=== PATIENT | male | born 1945 ===

== ENCOUNTER 2016-05-31 15:18 | Inpatient (IN) | payer MEDICARE ==
[2016-05-31 20:35] VITALS: BMI 30.7
[2016-05-31] MEDS ORDERED: Ergocalciferol 50,000 Intl Units Cap PO SCH (22:00)
--- NOTE | 2016-05-31 23:15 | CP.PCM.HP ---
History of Present Illness - History of Present Illness History of Present Illness: PCP: Dr Gina Bond MD Chief complaint: Left side weakness for Rehabilitation HPI: 70 years old male with hx of DM II, Anemia, Multiple Myeloma transferred from the [facility] ([facility] to the [facility] for Acute Rehabilitation. He was admitted to the [facility] on 05/23/16 after left side weakness and fall. diagnosed with MUltiple Sclerosis Exacerbation. he was treated with IV Steroids which initially improved his weakness. He now refers that with the tapering of the steroids , that the left side weakness is increasing. He was also treated for Acute Cystitis .At present he refers limited movement of the left leg and left upper extremity, no fever,cough, SOB nor abdominal pains. His barrios catheter was left in place because of a urinary retention. PMH: Multiple Sclerosis dx 1998; DM II; external hemorrhoides; anemia; Obstructive Sleep Apnea;Acute Cystitis; hydronephrosis PSH: Herniated disc with lumbar laminectomy and fusion 1989;Gastric bipass 2015 for besity; SH: Never smoked; No alcohol; No illegal drug use; live with ; FH: No Hereditary disease Allergies: NKDA Present on Admission - Present on Admission Any Indicators Present on Admission: Yes History of DVT/PE: No History of Uncontrolled Diabetes: No Urinary Catheter: Yes Decubitus Ulcer Present: No Review of Systems - Constitutional Constitutional: Fatigue. absent: Anorexia, Chills, Fever, Headache, Weakness - EENT Eyes: Requires Corrective Lenses. absent: Blurred Vision, Diplopia, Floaters, Pain Ears: absent: Decreased Hearing, Ear Discharge, Ear Pain, Tinnitus Nose/Mouth/Throat: absent: Epistaxis, Nasal Congestion, Nasal Discharge, Sinus Pain, Sinus Pressure, Sore Throat - Cardiovascular Cardiovascular: absent: Chest Pain, Edema, Leg Ulcers, Lightheadedness, Orthopnea - Respiratory Respiratory: absent: Cough, Wheezing, Stridor - Gastrointestinal Gastrointestinal: absent: Constipation, Diarrhea, Hematemesis, Nausea - Genitourinary Genitourinary: absent: Dysuria Additional comments: urinary retention - Musculoskeletal Musculoskeletal: Muscle Weakness. absent: Back Pain, Myalgias Additional comments: Left lower an dleft upper extremity weaknes - Integumentary Integumentary: absent: Change in Hair, Pruritus, Skin Ulcer, Sores, Striae, Swelling - Neurological Neurological: Focal Weakness. absent: Confusion, Headaches, Loss of Vision, Memory Loss - Psychiatric Psychiatric: absent: Anxiety, Depression, Panic Attacks - Endocrine Endocrine: Polyphagia, Polyuria - Hematologic/Lymphatic Hematologic: absent: Easy Bleeding, Easy Bruising Past Patient History - Past Medical History & Family History Past Medical History?: Yes - Past Social History Smoking Status: Never Smoked Chewing Tobacco Use: No Cigar Use: No Alcohol: None Drugs: Denies Home Situation {Lives}: With Family - CARDIAC Hx Cardiac Disorders: No Hx Pacemaker: No - PULMONARY Hx Respiratory Disorders: No - NEUROLOGICAL Hx Multiple Sclerosis: Yes (1993 - dr. laisha whitfield) - HEENT Hx HEENT Problems: No - RENAL Hx Chronic Kidney Disease: No - ENDOCRINE/METABOLIC Hx Endocrine Disorders: No - HEMATOLOGICAL/ONCOLOGICAL Hx Blood Transfusions: Yes Hx Blood Transfusion Reaction: No - INTEGUMENTARY Hx Dermatological Problems: No - MUSCULOSKELETAL/RHEUMATOLOGICAL Hx Falls: Yes - GASTROINTESTINAL Hx Gastrointestinal Disorders: No - GENITOURINARY/GYNECOLOGICAL Hx Prostate Problems: Yes (enlarged prostate) Hx Urinary Tract Infection: Yes - PSYCHIATRIC Hx Substance Use: No - SURGICAL HISTORY Hx Surgeries: Yes Hx Gastric Bypass Surgery: Yes (2013 gastric sleeve) Hx Musculoskeletal Surgery: Yes (back l4 l5 -1993) - ANESTHESIA Hx Anesthesia: Yes Hx Anesthesia Reactions: No Hx Malignant Hyperthermia: No Meds Allergies/Adverse Reactions: Allergies Allergy/AdvReac Type Severity Reaction Status Date / Time No Known Allergies Allergy Verified 05/31/16 20:00 Physical Exam - Head Exam Head Exam: ATRAUMATIC, NORMOCEPHALIC - Eye Exam Eye Exam: EOMI, Normal appearance, PERRL Pupil Exam: NORMAL ACCOMODATION - ENT Exam ENT Exam: Mucous Membranes Moist, Normal Exam, Normal External Ear Exam, Normal Oropharynx - Neck Exam Neck exam: Positive for: Full Rom, Normal Inspection. Negative for: Lymphadenopathy, Tenderness - Respiratory Exam Respiratory Exam: Clear to Auscultation Bilateral. absent: Rales, Rhonchi, Wheezes - Cardiovascular Exam Cardiovascular Exam: REGULAR RHYTHM, RRR, +S2. absent: Gallop, JVD - GI/Abdominal Exam Additional comments: obese, Soft, nontender, +ve bowel sounds, No guarding nor rebound tenderness - Neurological Exam Neurological exam: Alert, Oriented x3, Reflexes Normal - Psychiatric Exam Psychiatric exam: Flat Affect - Skin Skin Exam: Dry, Intact, Normal Color, Warm Results - Labs Labs: 05/30/16 Hb 13.4 Ht 42.8 WBC 14.2 Blod glucose 247 - Imaging and Cardiology MRI - head Status: Report reviewed by me Additional comment: 05/23/16 there is no significant change in the [id number] which have a pattern suspicious for demyelination process, no territorial infarct, mass effect, subdural collection or hydrocephalus. Bladder US Status: Report reviewed by me Additional comment: 05/25/16 Bladder wall irregularity may indicated Cystitis Lumbar spine MRI Status: Report reviewed by me Additional comment: 05/24/16 No significant change of lumbar spine. post operative and degenertive spindingswith stenosis are noted.thickening of urinary bladder wall incompletely evacuated. Assessment & Plan - Assessment and Plan (Free Text) Assessment: #. MS Exacerbation #. Left upper and lower extremity weakness #. Urinary Retention #. Hydronephrosis #. Acute Cystitis #. DM II #. LY #.Anemia Plan: 70 years old male with hx of DM II, Anemia, Multiple Myeloma transferred from the [facility] ([facility] to the [facility] for Acute Rehabilitation. He was admitted to the [facility] on 05/23/16 after left side weakness and fall. diagnosed with Multiple Sclerosis Exacerbation. He was treated with IV Steroids which initially improved his weakness. He now refers that with the tapering of the steroids , that the left side weakness is increasing. He was also treated for Acute Cystitis .At present he refers limited movement of the left leg and left upper extremity, no fever,cough, SOB nor abdominal pains. His barrios catheter was left in place because of a urinary retention. #. MS Exacerbation - Tapering dose of Prednisone 20mg on 06/01/16 - 06/02/16 the 10mg 06/03/16-06/04/16 - consult Dr Llanos Physiatry - PT/OT #. Left upper and lower extremity weakness - OT/PT #. Urinary Retention with barrios in situ - Continue Flomax and Avodart family could bring in - Voiding trial on 06/06/16 #. Hydronephrosis - Will follow up with Urology out poatient #. Acute Cystitis - Fully Treated with Rocephin at [facility] #. 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 LY - CPAP at nights to sleep #.Anemia - FeSo4/ MV - follow Hb #. External hemorrhoids - Anucort suppository # DVT prophylaxis with Lovenox #. code Status Full - Date & Time Date: 05/31/16 Time: 23:15
[2016-06-01] MEDS: Insulin Lispro (humaLOG) 100 Units/ml Inj SC SCH ×4 (06:48→21:00)
[2016-06-01 07:44] LABS: BASO % 0.2 % (0.0-2.0); EOS # 0.3 K/uL (0.0-0.7); EOS % 2.5 % (0.0-4.0); HEMATOCRIT 38.3 % (35.0-51.0); LYMPH # 4.3 K/uL (1.0-4.3); LYMPH % 39.6 % (20.0-40.0); MEAN CELL VOLUME 78.5 fl (80.0-94.0); MEAN CORPUSCULAR HGB CONC 33.1 g/dL (33.0-37.0); MEAN PLATELET VOLUME 7.7 fl (7.2-11.7); MONO # 0.8 K/uL (0.0-0.8); MONO % 7.3 % (0.0-10.0); NEUT # 5.4 K/uL (1.8-7.0); NEUT % 50.4 % (50.0-75.0); NRBC % 0.2 % (0.0-0.0); PLATELET COUNT 289 K/uL (130-400); RED CELL DISTRIBUTION WIDTH 18.4 % (11.5-14.5); WHITE BLOOD COUNT 10.7 K/uL (4.8-10.8)
[2016-06-01 08:02] LABS: PARTIAL THROMBOPLASTIN TIME 26.3 SECONDS (23.3-32.5)
[2016-06-01 08:04] LABS: BLOOD UREA NITROGEN 19 mg/dl (9-20); CARBON DIOXIDE 29 mmol/L (22-30); CHLORIDE 101 mmol/L (98-107); GFR AFRICAN-AMERICAN > 60; GLUCOSE,RANDOM 100 mg/dL (75-110); POTASSIUM 4.2 MMOL/L (3.6-5.0); SODIUM 141 mmol/l (132-148)
[2016-06-01] MEDS ORDERED: DUTASTERIDE PO SCH (09:00)
[2016-06-01] MEDS ORDERED: MULTIVITAMIN WITH IRON PO SCH (09:00)
[2016-06-01] MEDS: carBAMazepine Chew Tab 100 MG Chew Tab PO SCH ×3 (09:15→17:28)
[2016-06-01] MEDS: Pantoprazole 40 mg EC Tab PO SCH (09:15)
[2016-06-01] MEDS: Enoxaparin 40 mg Syringe SC SCH (09:15)
[2016-06-01] MEDS: Multivitamin With Minerals Tab PO SCH (09:16)
[2016-06-01 10:38] LABS: BASOPHIL 1 % (0-2); EOSINOPHIL 1 % (0-7); MYELOCYTE 2 % (0-0); NEUTROPHIL 44 % (42-75); REACTIVE LYMPHOCYTES 2 % (0-0); TOTAL CELLS COUNTED 100
[2016-06-01 10:41] LABS: LARGE PLATELETS PRESENT
--- NOTE | 2016-06-01 19:00 | CP.PCM.CON ---
History of Present Illness - History of Present Illness History of Present Illness: 70 year male admitted for acute rehab after status post Ms Exacerbation. Patient with weakness and status post fall down the stairs, urinary incontinence. Status post Iv steroids as well. Review of Systems - Constitutional Constitutional: Weakness - Musculoskeletal Musculoskeletal: Back Pain, Muscle Weakness, Myalgias Past Patient History - Past Medical History & Family History Past Medical History?: Yes - Past Social History Smoking Status: Never Smoked Chewing Tobacco Use: No Cigar Use: No Alcohol: None Drugs: Denies Home Situation {Lives}: With Family - CARDIAC Hx Cardiac Disorders: No Hx Pacemaker: No - PULMONARY Hx Respiratory Disorders: No - NEUROLOGICAL Hx Multiple Sclerosis: Yes (1993 - dr. laisha whitfield) - HEENT Hx HEENT Problems: No - RENAL Hx Chronic Kidney Disease: No - ENDOCRINE/METABOLIC Hx Endocrine Disorders: No - HEMATOLOGICAL/ONCOLOGICAL Hx Blood Transfusions: Yes Hx Blood Transfusion Reaction: No - INTEGUMENTARY Hx Dermatological Problems: No - MUSCULOSKELETAL/RHEUMATOLOGICAL Hx Falls: Yes - GASTROINTESTINAL Hx Gastrointestinal Disorders: No - GENITOURINARY/GYNECOLOGICAL Hx Prostate Problems: Yes (enlarged prostate) Hx Urinary Tract Infection: Yes - PSYCHIATRIC Hx Substance Use: No - SURGICAL HISTORY Hx Surgeries: Yes Hx Gastric Bypass Surgery: Yes (2013 gastric sleeve) Hx Musculoskeletal Surgery: Yes (back l4 l5 -1993) - ANESTHESIA Hx Anesthesia: Yes Hx Anesthesia Reactions: No Hx Malignant Hyperthermia: No Meds Allergies/Adverse Reactions: Allergies Allergy/AdvReac Type Severity Reaction Status Date / Time No Known Allergies Allergy Verified 05/31/16 20:00 - Medications Medications: Current Medications Carbamazepine (Tegretol) 100 mg PO TID [facility] Last Admin: 06/01/16 17:28 Dose: 100 mg Docusate Sodium (Colace) 100 mg PO BID [facility] Last Admin: 06/01/16 17:28 Dose: 100 mg Enalapril Maleate (Vasotec) 5 mg PO DAILY [facility] Last Admin: 06/01/16 09:15 Dose: 5 mg Enoxaparin Sodium (Lovenox) 40 mg SC DAILY [facility] PRN Reason: Protocol Last Admin: 06/01/16 09:15 Dose: 40 mg Ergocalciferol (Drisdol 50,000 Intl Units Cap) 1 cap PO QWK [facility] Ferrous Sulfate (Feosol) 325 mg PO TID [facility] Last Admin: 06/01/16 17:28 Dose: 325 mg Finasteride (Proscar) 5 mg PO DAILY [facility] Hydrocortisone (Anusol-Hc) 25 mg ND BID [facility] Last Admin: 06/01/16 17:28 Dose: 25 mg Insulin Human Lispro (Humalog) 0 units SC ACHS [facility] PRN Reason: Protocol Last Admin: 06/01/16 17:27 Dose: 2 unit Lactulose (Enulose) 20 gm PO BID PRN PRN Reason: Constipation Multivitamins/Minerals (Therapeutic-M Tab) 1 tab PO DAILY [facility] Last Admin: 06/01/16 09:16 Dose: 1 tab Pantoprazole Sodium (Protonix Ec Tab) 40 mg PO DAILY [facility] Last Admin: 06/01/16 09:15 Dose: 40 mg Prednisone (Prednisone Tab) 20 mg PO DAILY [facility] Last Admin: 06/01/16 09:14 Dose: 20 mg Prednisone (Prednisone Tab) 10 mg PO DAILY [facility] Stop: 06/04/16 09:01 Tamsulosin HCl (Flomax) 0.4 mg PO DAILY [facility] Last Admin: 06/01/16 09:14 Dose: 0.4 mg Physical Exam - Head Exam Head Exam: ATRAUMATIC, NORMAL INSPECTION, NORMOCEPHALIC - Eye Exam Eye Exam: EOMI, Normal appearance - ENT Exam ENT Exam: Normal Exam - Respiratory Exam Respiratory Exam: NORMAL BREATHING PATTERN - Cardiovascular Exam Cardiovascular Exam: REGULAR RHYTHM - GI/Abdominal Exam GI & Abdominal Exam: Normal Bowel Sounds - Rectal Exam Rectal Exam: NORMAL INSPECTION - Extremities Exam Extremities exam: Positive for: normal inspection Additional comments: weakness generalized and on lower extremity - Neurological Exam Neurological exam: Alert, CN II-XII Intact - Psychiatric Exam Psychiatric exam: Normal Affect - Skin Skin Exam: Normal Color Results - Vital Signs Recent Vital Signs: Last Vital Signs Temp 97.2 F L 06/01/16 16:31 Pulse 79 06/01/16 16:31 Resp 20 06/01/16 16:31 BP 110/61 06/01/16 17:29 Pulse Ox 97 06/01/16 16:31 - Labs Result Diagrams: 06/01/16 07:29 06/01/16 07:29 Labs: Laboratory Results - last 24 hr 05/31/16 06/01/16 06/01/16 22:06 05:21 07:29 WBC 10.7 D RBC 4.88 Hgb 12.7 Hct 38.3 MCV 78.5 L D MCH 26.0 L MCHC 33.1 RDW 18.4 H Plt Count 289 MPV 7.7 Neut % (Auto) 50.4 Lymph % (Auto) 39.6 Kenton % (Auto) 7.3 Eos % (Auto) 2.5 Baso % (Auto) 0.2 Neut # 5.4 Lymph # 4.3 Kenton # 0.8 Eos # 0.3 Baso # 0.0 Neutrophils % (Manual) 44 Band Neutrophils % 1 Lymphocytes % (Manual) 40 Reactive Lymphs % 2 H Monocytes % (Manual) 9 Eosinophils % (Manual) 1 Basophils % (Manual) 1 Myelocytes % 2 H Platelet Estimate Normal Large Platelets Present Poikilocytosis (manual Slight Anisocytosis (manual) Slight Tear Drop Cells Slight Ovalocytes Slight PT 10.8 INR 1.04 APTT 26.3 Sodium 141 Potassium 4.2 Chloride 101 Carbon Dioxide 29 Anion Gap 15 BUN 19 Creatinine 0.7 L Est GFR ( Amer) > 60 Est GFR (Non-Af Amer) > 60 POC Glucose (mg/dL) 108 110 Random Glucose 100 Hemoglobin A1c 6.9 H Calcium 9.0 06/01/16 06/01/16 12:17 16:18 WBC RBC Hgb Hct MCV MCH MCHC RDW Plt Count MPV Neut % (Auto) Lymph % (Auto) Kenton % (Auto) Eos % (Auto) Baso % (Auto) Neut # Lymph # Kenton # Eos # Baso # Neutrophils % (Manual) Band Neutrophils % Lymphocytes % (Manual) Reactive Lymphs % Monocytes % (Manual) Eosinophils % (Manual) Basophils % (Manual) Myelocytes % Platelet Estimate Large Platelets Poikilocytosis (manual Anisocytosis (manual) Tear Drop Cells Ovalocytes PT INR APTT Sodium Potassium Chloride Carbon Dioxide Anion Gap BUN Creatinine Est GFR ( Amer) Est GFR (Non-Af Amer) POC Glucose (mg/dL) 158 H 242 H Random Glucose Hemoglobin A1c Calcium Assessment & Plan (1) Neuralgia Status: Acute (2) UTI (urinary tract infection) Status: Acute (3) Urinary retention Status: Acute (4) Multiple sclerosis exacerbation Assessment and Plan: and history of old Cva, lumbar laminectomy, gastric bypass ,obesity, Dm Plan for physical and occupational therapy for rom, strengthening, transfers and gait training. Overall plan to follow length of stay 2 or 2half weeks\ Plan for Dc home Status: Acute
--- NOTE | 2016-06-01 19:21 | PN ---
DATE: 06/01/2016 The patient is a 70-year-old male. The patient was admitted on 05/31 to acute inpatient rehab. The patient with the diagnosis of exacerbation of multiple sclerosis; also diagnosis of lumbar laminectom y, gastric bypass, hydronephrosis, CVA. Estimated length of stay for this patient is 2-3 weeks. Anticipated discharge plan is to go back to live at home with supportive services. TREATMENT PLAN: Physical therapy, occupational therapy for range of motion, strengthening, transfers , ambulation, gait training, ADL eval, equipment evaluation. The patient for physical, occupational, recreational therapy program. TENTATIVE DISCHARGE FOR THE PATIENT: Discharge home. No acute barriers to discharge noted. Plan for discharge home with supportive services. CONDITION: Fair. This is the overall plan of care for the patient on 6[address], bed 1 at [place]. Jf Garza MD cc: [id number] TT: 06/01/2016 19:20:31 Confirmation # [id number] Dictation # [id number] nadia
[2016-06-02] MEDS: Insulin Lispro (humaLOG) 100 Units/ml Inj SC SCH ×4 (06:30→21:00)
[2016-06-02] MEDS: carBAMazepine Chew Tab 100 MG Chew Tab PO SCH ×3 (08:22→16:22)
[2016-06-02] MEDS: Multivitamin With Minerals Tab PO SCH (08:22)
[2016-06-02] MEDS: Pantoprazole 40 mg EC Tab PO SCH (08:22)
[2016-06-02] MEDS: Enoxaparin 40 mg Syringe SC SCH (08:23)
--- NOTE | 2016-06-02 09:50 | CP.PCM.PN ---
Subjective - Date & Time of Evaluation Date of Evaluation: 06/02/16 Time of Evaluation: 09:49 - Subjective Subjective: feeling improved today, better than yesterday, also feels stronger no other complaints PT going well vitals stable nad. Objective - Vital Signs/Intake and Output Vital Signs (last 24 hours): Temp Pulse Resp BP Pulse Ox 96.6 F L 56 L 20 136/75 95 06/02/16 07:41 06/02/16 07:41 06/02/16 07:41 06/02/16 07:41 06/02/16 07:41 Intake and Output: 06/02/16 06/02/16 06:59 18:59 Intake Total 600 Output Total 1400 Balance -800 - Medications Medications: Current Medications Carbamazepine (Tegretol) 100 mg PO TID [facility] Last Admin: 06/02/16 08:22 Dose: 100 mg Docusate Sodium (Colace) 100 mg PO BID [facility] Last Admin: 06/02/16 08:23 Dose: 100 mg Enalapril Maleate (Vasotec) 5 mg PO DAILY [facility] Last Admin: 06/02/16 08:23 Dose: 5 mg Enoxaparin Sodium (Lovenox) 40 mg SC DAILY [facility] PRN Reason: Protocol Last Admin: 06/02/16 08:23 Dose: 40 mg Ergocalciferol (Drisdol 50,000 Intl Units Cap) 1 cap PO QWK [facility] Ferrous Sulfate (Feosol) 325 mg PO TID [facility] Last Admin: 06/02/16 08:22 Dose: 325 mg Finasteride (Proscar) 5 mg PO DAILY [facility] Last Admin: 06/02/16 08:23 Dose: 5 mg Hydrocortisone (Anusol-Hc) 25 mg MS BID [facility] Last Admin: 06/02/16 08:22 Dose: Not Given Insulin Human Lispro (Humalog) 0 units SC ACHS [facility] PRN Reason: Protocol Last Admin: 06/02/16 06:30 Dose: Not Given Lactulose (Enulose) 20 gm PO BID PRN PRN Reason: Constipation Multivitamins/Minerals (Therapeutic-M Tab) 1 tab PO DAILY [facility] Last Admin: 06/02/16 08:22 Dose: 1 tab Pantoprazole Sodium (Protonix Ec Tab) 40 mg PO DAILY [facility] Last Admin: 06/02/16 08:22 Dose: 40 mg Prednisone (Prednisone Tab) 20 mg PO DAILY [facility] Last Admin: 06/02/16 08:23 Dose: 20 mg Prednisone (Prednisone Tab) 10 mg PO DAILY [facility] Stop: 06/04/16 09:01 Tamsulosin HCl (Flomax) 0.4 mg PO DAILY [facility] Last Admin: 06/02/16 08:23 Dose: 0.4 mg - Labs Labs: 06/01/16 07:29 06/01/16 07:29 PT 10.8 SECONDS (9.6-11.2) 06/01/16 07:29 INR 1.04 (0.92-1.08) 06/01/16 07:29 APTT 26.3 SECONDS (23.3-32.5) 06/01/16 07:29 - Constitutional Appears: Non-toxic, No Acute Distress - Head Exam Head Exam: ATRAUMATIC, NORMOCEPHALIC - Eye Exam Eye Exam: EOMI, Normal appearance, PERRL - ENT Exam ENT Exam: Mucous Membranes Moist, Normal Oropharynx - Neck Exam Neck Exam: Full ROM, Normal Inspection - Cardiovascular Exam Cardiovascular Exam: RRR, +S1, +S2. absent: Gallop, Rubs - GI/Abdominal Exam GI & Abdominal Exam: Soft, Normal Bowel Sounds, Organomegaly. absent: Tenderness, Mass - Extremities Exam Extremities Exam: Normal Capillary Refill. absent: Calf Tenderness - Back Exam Back Exam: NORMAL INSPECTION. absent: CVA tenderness (L), CVA tenderness (R), rash noted - Neurological Exam Neurological Exam: Alert, Awake, Oriented x3 - Psychiatric Exam Psychiatric exam: Normal Affect, Normal Mood - Skin Skin Exam: Dry, Normal Color, Warm Assessment and Plan - Assessment and Plan (Free Text) Plan: 70 years old male with hx of DM II, Anemia, Multiple Myeloma transferred from the [facility] ([facility]) to the [facility] for Acute Rehabilitation. He was admitted to the [facility] on 05/23/16 after left side weakness and fall. diagnosed with Multiple Sclerosis Exacerbation. He was treated with IV Steroids which initially improved his weakness. He now refers that with the tapering of the steroids , that the left side weakness is increasing. He was also treated for Acute Cystitis .At present he refers limited movement of the left leg and left upper extremity, no fever,cough, SOB nor abdominal pains. His barrios catheter was left in place because of a urinary retention. MS Exacerbation MRI BRAIN 05/23/16 there is no significant change in the [id number] which have a pattern suspicious for demyelination process, no territorial infarct, mass effect, subdural collection or hydrocephalus. - Tapering dose of Prednisone 20mg on 06/01/16 - 06/02/16 the 10mg 06/03/16-06/04/16 - consult Dr Llanos Physiatry - PT/OT, continue Left upper and lower extremity weakness 05/24/16 No significant change of lumbar spine. post operative and degenertive spindingswith stenosis are noted.thickening of urinary bladder wall incompletely evacuated. 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
--- NOTE | 2016-06-02 12:01 | CP.PCM.PN ---
Subjective - Date & Time of Evaluation Date of Evaluation: 06/02/16 Time of Evaluation: 11:00 - Subjective Subjective: patient with complains of bilateral leg weakness left side worse than right Objective - Vital Signs/Intake and Output Vital Signs (last 24 hours): Temp Pulse Resp BP Pulse Ox 96.6 F L 56 L 20 136/75 95 06/02/16 07:41 06/02/16 07:41 06/02/16 07:41 06/02/16 07:41 06/02/16 07:41 Intake and Output: 06/02/16 06/02/16 06:59 18:59 Intake Total 600 Output Total 1400 Balance -800 - Medications Medications: Current Medications Carbamazepine (Tegretol) 100 mg PO TID [facility] Last Admin: 06/02/16 08:22 Dose: 100 mg Docusate Sodium (Colace) 100 mg PO BID [facility] Last Admin: 06/02/16 08:23 Dose: 100 mg Enalapril Maleate (Vasotec) 5 mg PO DAILY [facility] Last Admin: 06/02/16 08:23 Dose: 5 mg Enoxaparin Sodium (Lovenox) 40 mg SC DAILY [facility] PRN Reason: Protocol Last Admin: 06/02/16 08:23 Dose: 40 mg Ergocalciferol (Drisdol 50,000 Intl Units Cap) 1 cap PO QWK [facility] Ferrous Sulfate (Feosol) 325 mg PO TID [facility] Last Admin: 06/02/16 08:22 Dose: 325 mg Finasteride (Proscar) 5 mg PO DAILY [facility] Last Admin: 06/02/16 08:23 Dose: 5 mg Hydrocortisone (Anusol-Hc) 25 mg MS BID [facility] Last Admin: 06/02/16 08:22 Dose: Not Given Insulin Human Lispro (Humalog) 0 units SC ACHS [facility] PRN Reason: Protocol Last Admin: 06/02/16 11:53 Dose: Not Given Lactulose (Enulose) 20 gm PO BID PRN PRN Reason: Constipation Multivitamins/Minerals (Therapeutic-M Tab) 1 tab PO DAILY [facility] Last Admin: 06/02/16 08:22 Dose: 1 tab Pantoprazole Sodium (Protonix Ec Tab) 40 mg PO DAILY [facility] Last Admin: 06/02/16 08:22 Dose: 40 mg Prednisone (Prednisone Tab) 10 mg PO DAILY [facility] Stop: 06/04/16 09:01 Tamsulosin HCl (Flomax) 0.4 mg PO DAILY [facility] Last Admin: 06/02/16 08:23 Dose: 0.4 mg - Labs Labs: 06/01/16 07:29 06/01/16 07:29 PT 10.8 SECONDS (9.6-11.2) 06/01/16 07:29 INR 1.04 (0.92-1.08) 06/01/16 07:29 APTT 26.3 SECONDS (23.3-32.5) 06/01/16 07:29 - Head Exam Head Exam: ATRAUMATIC, NORMAL INSPECTION, NORMOCEPHALIC - Eye Exam Eye Exam: EOMI, Normal appearance, PERRL Pupil Exam: NORMAL ACCOMODATION - ENT Exam ENT Exam: Mucous Membranes Moist, Normal Exam - Respiratory Exam Respiratory Exam: NORMAL BREATHING PATTERN - Cardiovascular Exam Cardiovascular Exam: REGULAR RHYTHM - GI/Abdominal Exam GI & Abdominal Exam: Normal Bowel Sounds - Rectal Exam Rectal Exam: NORMAL INSPECTION - Exam External exam: NORMAL EXTERNAL EXAM - Extremities Exam Extremities Exam: Normal Capillary Refill - Back Exam Back Exam: NORMAL INSPECTION - Neurological Exam Neurological Exam: Alert, Awake Neuro motor strength exam: Left Upper Extremity: 3, Right Upper Extremity: 4, Left Lower Extremity: 2/1, Right Lower Extremity: 2/1 - Psychiatric Exam Psychiatric exam: Normal Affect, Normal Mood - Skin Skin Exam: Dry, Normal Color Assessment and Plan (1) Neuralgia Status: Acute (2) UTI (urinary tract infection) Status: Acute (3) Urinary retention Status: Acute (4) Multiple sclerosis exacerbation Assessment & Plan: plan for physical, occupational and rec therapy may go outside with therpists Trial of electrical stimulation to improve muscle strength Status: Acute
[2016-06-03] MEDS: Insulin Lispro (humaLOG) 100 Units/ml Inj SC SCH ×4 (07:00→22:27)
[2016-06-03] MEDS: Enoxaparin 40 mg Syringe SC SCH (09:13)
[2016-06-03] MEDS: Pantoprazole 40 mg EC Tab PO SCH (09:14)
[2016-06-03] MEDS: carBAMazepine Chew Tab 100 MG Chew Tab PO SCH ×3 (09:15→16:53)
[2016-06-03] MEDS: Multivitamin With Minerals Tab PO SCH (09:15)
[2016-06-04] MEDS: Insulin Lispro (humaLOG) 100 Units/ml Inj SC SCH ×4 (06:36→21:16)
[2016-06-04] MEDS: Enoxaparin 40 mg Syringe SC SCH (08:52)
[2016-06-04] MEDS: carBAMazepine Chew Tab 100 MG Chew Tab PO SCH ×3 (08:53→16:57)
[2016-06-04] MEDS: Multivitamin With Minerals Tab PO SCH (08:53)
[2016-06-04] MEDS: Pantoprazole 40 mg EC Tab PO SCH (08:53)
[2016-06-04 09:16] LABS: HEMATOCRIT 39.4 % (35.0-51.0); MEAN CELL VOLUME 79.3 fl (80.0-94.0); MEAN CORPUSCULAR HEMOGLOBIN 25.6 pg (27.0-31.0); MEAN CORPUSCULAR HGB CONC 32.3 g/dL (33.0-37.0); RED CELL DISTRIBUTION WIDTH 18.7 % (11.5-14.5); WHITE BLOOD COUNT 8.7 K/uL (4.8-10.8)
--- NOTE | 2016-06-04 13:12 | PN ---
DATE: 06/04/2016 The patient is doing well. No acute complaints at present, generalized weakness. PHYSICAL EXAMINATION: VITAL SIGNS: Stable. NECK: Supple. CHEST: Symmetrical. HEART: Sounds S1, S2. ABDOMEN: Benign. EXTREMITIES: No clubbing, cyanosis, or edema. IMPRESSION: Multiple sclerosis exacerbation, neuralgia, gait difficulty, deconditioning. PLAN: For the patient is physical and occupational therapy for range of motion, strengthening, trans fers, ambulation, and gait training. Continue to monitor the strength. Trial of functional electric al stimulation. Continue with acute rehabilitation program. Jf Garza MD cc: [id number] TT: 06/04/2016 13:12:01 Confirmation # [id number] Dictation # [id number] mn
[2016-06-05] MEDS: Insulin Lispro (humaLOG) 100 Units/ml Inj SC SCH ×3 (06:45→21:32)
[2016-06-05] MEDS: Enoxaparin 40 mg Syringe SC SCH (09:01)
[2016-06-05] MEDS: Pantoprazole 40 mg EC Tab PO SCH (09:02)
[2016-06-05] MEDS: carBAMazepine Chew Tab 100 MG Chew Tab PO SCH ×3 (09:03→16:55)
[2016-06-05] MEDS: Multivitamin With Minerals Tab PO SCH (09:03)
--- NOTE | 2016-06-05 10:24 | CP.PCM.PN ---
Subjective - Date & Time of Evaluation Date of Evaluation: 06/05/16 Time of Evaluation: 10:24 - Subjective Subjective: patient seen and examined at bedside. currently feels well, strength is improving. he has no complaints at this time and states pt is going well vitals are stable no acute distress. Objective - Vital Signs/Intake and Output Vital Signs (last 24 hours): Temp Pulse Resp BP Pulse Ox 97.7 F 57 L 18 122/71 96 06/05/16 07:34 06/05/16 07:34 06/05/16 07:34 06/05/16 07:34 06/05/16 07:34 Intake and Output: 06/05/16 06/05/16 06:59 18:59 Intake Total 400 Output Total 1000 Balance -600 - Medications Medications: Current Medications Carbamazepine (Tegretol) 100 mg PO TID [facility] Last Admin: 06/05/16 09:03 Dose: 100 mg Docusate Sodium (Colace) 100 mg PO BID [facility] Last Admin: 06/05/16 09:00 Dose: 100 mg Enalapril Maleate (Vasotec) 5 mg PO DAILY [facility] Last Admin: 06/05/16 09:03 Dose: Not Given Enoxaparin Sodium (Lovenox) 40 mg SC DAILY [facility] PRN Reason: Protocol Last Admin: 06/05/16 09:01 Dose: 40 mg Ergocalciferol (Drisdol 50,000 Intl Units Cap) 1 cap PO QWK [facility] Ferrous Sulfate (Feosol) 325 mg PO TID [facility] Last Admin: 06/05/16 09:00 Dose: 325 mg Finasteride (Proscar) 5 mg PO DAILY [facility] Last Admin: 06/05/16 09:02 Dose: 5 mg Hydrocortisone (Anusol-Hc) 25 mg DE BID [facility] Last Admin: 06/05/16 09:00 Dose: 25 mg Insulin Human Lispro (Humalog) 0 units SC ACHS [facility] PRN Reason: Protocol Last Admin: 06/05/16 06:45 Dose: Not Given Lactulose (Enulose) 20 gm PO BID PRN PRN Reason: Constipation Multivitamins/Minerals (Therapeutic-M Tab) 1 tab PO DAILY [facility] Last Admin: 06/05/16 09:03 Dose: 1 tab Pantoprazole Sodium (Protonix Ec Tab) 40 mg PO DAILY [facility] Last Admin: 06/05/16 09:02 Dose: 40 mg Tamsulosin HCl (Flomax) 0.4 mg PO DAILY [facility] Last Admin: 06/05/16 09:00 Dose: 0.4 mg - Labs Labs: 06/04/16 08:30 06/01/16 07:29 PT 10.8 SECONDS (9.6-11.2) 06/01/16 07:29 INR 1.04 (0.92-1.08) 06/01/16 07:29 APTT 26.3 SECONDS (23.3-32.5) 06/01/16 07:29 - Constitutional Appears: Non-toxic, No Acute Distress - Head Exam Head Exam: ATRAUMATIC, NORMOCEPHALIC - Eye Exam Eye Exam: EOMI, Normal appearance, PERRL Pupil Exam: NORMAL ACCOMODATION - ENT Exam ENT Exam: Mucous Membranes Moist, Normal Exam - Neck Exam Neck Exam: Full ROM, Normal Inspection - Respiratory Exam Respiratory Exam: Clear to Ausculation Bilateral - Cardiovascular Exam Cardiovascular Exam: RRR, +S1, +S2. absent: Gallop, Rubs - GI/Abdominal Exam GI & Abdominal Exam: Soft, Normal Bowel Sounds. absent: Tenderness, Mass, Organomegaly - Extremities Exam Extremities Exam: Normal Capillary Refill. absent: Calf Tenderness - Back Exam Back Exam: absent: CVA tenderness (L), CVA tenderness (R) - Neurological Exam Neurological Exam: Alert, Awake, Oriented x3 - Psychiatric Exam Psychiatric exam: Normal Affect, Normal Mood - Skin Skin Exam: Dry, Warm Assessment and Plan - Assessment and Plan (Free Text) Plan: 70 years old male with hx of DM II, Anemia, Multiple Myeloma transferred from the [facility] to the [facility] for [facility]. He was admitted to the [facility] on 05/23/16 after left side weakness and fall. diagnosed with Multiple Sclerosis Exacerbation. He was treated with IV Steroids which initially improved his weakness. He now refers that with the tapering of the steroids , that the left side weakness is increasing. He was also treated for Acute Cystitis .At present he refers limited movement of the left leg and left upper extremity, no fever,cough, SOB nor abdominal pains. His barrios catheter was left in place because of a urinary retention. MS Exacerbation MRI BRAIN 05/23/16 there is no significant change in the [id number] which have a pattern suspicious for demyelination process, no territorial infarct, mass effect, subdural collection or hydrocephalus. - Tapering dose of Prednisone 20mg on 06/01/16 - 06/02/16 the 10mg 06/03/16-06/04/16 - consult Dr Llanos Physiatry - PT/OT, continue doing well Left upper and lower extremity weakness 05/24/16 No significant change of lumbar spine. post operative and degenertive spindingswith stenosis are noted.thickening of urinary bladder wall incompletely evacuated. - OT/PT Urinary Retention with barrios in situ - Continue Flomax and Avodart family could bring in - Voiding trial on 06/06/16 TOMORROW Hydronephrosis - Will follow up with Urology out poatient Acute Cystitis 05/25/16 Bladder wall irregularity may indicated Cystitis - Fully Treated with Rocephin at [facility] DM II secondary to steroids - Diabetic diet - Sliding scale insulin according to accucheck - HbA1c LY - CPAP at nights to sleep Anemia - FeSo4/ MV - follow Hb External hemorrhoids - Anucort suppository DVT prophylaxis with Lovenox code Status Full
[2016-06-06] MEDS: Insulin Lispro (humaLOG) 100 Units/ml Inj SC SCH ×2 (06:21→21:00)
[2016-06-06] MEDS: carBAMazepine Chew Tab 100 MG Chew Tab PO SCH ×3 (09:20→16:52)
[2016-06-06] MEDS: Pantoprazole 40 mg EC Tab PO SCH (09:20)
[2016-06-06] MEDS: Enoxaparin 40 mg Syringe SC SCH (09:20)
[2016-06-06] MEDS: Multivitamin With Minerals Tab PO SCH (09:20)
--- NOTE | 2016-06-06 15:24 | CP.PCM.PN ---
Subjective - Date & Time of Evaluation Date of Evaluation: 06/06/16 Time of Evaluation: 13:00 - Subjective Subjective: no neck or back pain, patient is doing well Objective - Vital Signs/Intake and Output Vital Signs (last 24 hours): Temp Pulse Resp BP Pulse Ox 98.0 F 60 19 144/78 97 06/06/16 08:36 06/06/16 08:36 06/06/16 08:36 06/06/16 08:36 06/06/16 08:36 Intake and Output: 06/06/16 06/06/16 06:59 18:59 Intake Total 600 Output Total 950 Balance -350 - Medications Medications: Current Medications Carbamazepine (Tegretol) 100 mg PO TID [facility] Last Admin: 06/06/16 12:20 Dose: 100 mg Docusate Sodium (Colace) 100 mg PO BID [facility] Last Admin: 06/06/16 09:19 Dose: 100 mg Enalapril Maleate (Vasotec) 5 mg PO DAILY [facility] Last Admin: 06/06/16 09:20 Dose: 5 mg Enoxaparin Sodium (Lovenox) 40 mg SC DAILY [facility] PRN Reason: Protocol Last Admin: 06/06/16 09:20 Dose: 40 mg Ergocalciferol (Drisdol 50,000 Intl Units Cap) 1 cap PO QWK [facility] Ferrous Sulfate (Feosol) 325 mg PO TID [facility] Last Admin: 06/06/16 12:20 Dose: 325 mg Finasteride (Proscar) 5 mg PO DAILY [facility] Last Admin: 06/06/16 09:20 Dose: 5 mg Hydrocortisone (Anusol-Hc) 25 mg RI Q12 [facility] Last Admin: 06/06/16 09:19 Dose: 25 mg Insulin Human Lispro (Humalog) 0 units SC 0630,2130 [facility] PRN Reason: Protocol Last Admin: 06/06/16 06:21 Dose: Not Given Lactulose (Enulose) 20 gm PO BID PRN PRN Reason: Constipation Multivitamins/Minerals (Therapeutic-M Tab) 1 tab PO DAILY [facility] Last Admin: 06/06/16 09:20 Dose: 1 tab Pantoprazole Sodium (Protonix Ec Tab) 40 mg PO DAILY [facility] Last Admin: 06/06/16 09:20 Dose: 40 mg Tamsulosin HCl (Flomax) 0.4 mg PO DAILY [facility] Last Admin: 06/06/16 09:19 Dose: 0.4 mg - Labs Labs: 06/04/16 08:30 06/01/16 07:29 PT 10.8 SECONDS (9.6-11.2) 06/01/16 07:29 INR 1.04 (0.92-1.08) 06/01/16 07:29 APTT 26.3 SECONDS (23.3-32.5) 06/01/16 07:29 - Head Exam Head Exam: ATRAUMATIC, NORMAL INSPECTION, NORMOCEPHALIC - Eye Exam Eye Exam: EOMI, Normal appearance, PERRL Pupil Exam: NORMAL ACCOMODATION - ENT Exam ENT Exam: Mucous Membranes Moist, Normal Exam - Neck Exam Neck Exam: Normal Inspection - Respiratory Exam Respiratory Exam: NORMAL BREATHING PATTERN - Cardiovascular Exam Cardiovascular Exam: REGULAR RHYTHM - GI/Abdominal Exam GI & Abdominal Exam: Normal Bowel Sounds - Rectal Exam Rectal Exam: NORMAL INSPECTION - Exam External exam: NORMAL EXTERNAL EXAM - Extremities Exam Extremities Exam: Normal Capillary Refill, Normal Inspection - Back Exam Back Exam: NORMAL INSPECTION - Neurological Exam Neurological Exam: Alert, Awake Neuro motor strength exam: Left Upper Extremity: 3, Right Upper Extremity: 3, Left Lower Extremity: 3, Right Lower Extremity: 3 - Psychiatric Exam Psychiatric exam: Normal Affect, Normal Mood - Skin Skin Exam: Dry, Intact Assessment and Plan (1) Neuralgia Assessment & Plan: patient for physical, occupational, recreational therapy monitor skin and vitals Status: Acute (2) UTI (urinary tract infection) Status: Acute (3) Urinary retention Status: Acute (4) Multiple sclerosis exacerbation Status: Acute
[2016-06-07] MEDS: Insulin Lispro (humaLOG) 100 Units/ml Inj SC SCH ×2 (06:36→22:08)
[2016-06-07 07:27] LABS: HEMATOCRIT 37.1 % (35.0-51.0); MEAN CELL VOLUME 80.4 fl (80.0-94.0); MEAN CORPUSCULAR HGB CONC 32.3 g/dL (33.0-37.0); RED CELL DISTRIBUTION WIDTH 19.1 % (11.5-14.5); WHITE BLOOD COUNT 7.9 K/uL (4.8-10.8)
[2016-06-07] MEDS: carBAMazepine Chew Tab 100 MG Chew Tab PO SCH ×3 (08:19→17:49)
[2016-06-07] MEDS: Multivitamin With Minerals Tab PO SCH (08:19)
[2016-06-07] MEDS: Pantoprazole 40 mg EC Tab PO SCH (08:19)
[2016-06-07] MEDS: Enoxaparin 40 mg Syringe SC SCH (08:20)
--- NOTE | 2016-06-07 12:09 | PSY.TMCNF ---
Nursing - Vital Signs Vital Signs (Last 8 hours): Vital Signs 06/07/16 06/07/16 08:22 09:05 Temperature 97.6 F Pulse Rate 58 L 58 L Respiratory 19 Rate Blood Pressure 122/72 122/72 O2 Sat by Pulse 96 Oximetry Pain: 0 - Medications/Other Issues Comment: Pt at low nutritional risk. Follow-up due on 06/10/2016 - Bladder Management Bladder Pattern: Normal Voiding Method: Toilet, Urinal - Bowel Management Bowel Pattern: Normal - Goals/Time Frame Comments: Pt was brought into recreation room and agreeable to participate in session. Pt was able to identify minimal leisure interests such as watching television. Pt did not express any other interests. Pt presents with poor insight of MS diagnosis and stated that he keeps researching why he presents with deficits; however, unable to carryover his education of his diagnosis. Pt is not active within the MS community leisure resources. Pt would benefit from recreation therapy sessions to improve L side weakness, leisure awareness level , and community leisure resources. Physical Therapy - Bed Mobility Bed Mobility: Verbal Cues, Contact Guard, Minimal Assistance, Moderate Assistance, Maximum Assistance Comment: rolling CG/min. supine to/from sit mod/max - Transfers Sit to Stand: Verbal Cues, Moderate Assistance, Maximum Assistance - Ambulation Level of Assistance: Maximum Assistance Distance (ft.): 5 Orthoses: L DF wrap Comment: -parallel bars, step to pattern, WC follow. -LLE dorsiflexion wrap in place. -patient utilizes postures evidence of history of gait with posterior propping (on loft strand crutches). -able to take small step with L foot today but requires assistance to control inversion/eversion and landing; max A to prevent L knee buckling; mod A to prevent R knee buckling. -mod to max A for trunk control/upright stance. -requires step by step VCs to attempt to have patient improve pattern of gait. -pt remains at high fall risk due to LE weakness (L>R) and LUE weakness with poor postural control - Stair Negotiation Stairs: Level of Assistance: Not Tested - Standing Balance Static Stand: Maximal Assistance Dynamic Stand: Maximal Assistance - Pain Pain (assessed during therapy session): 0 - Insight/Carryover Insight/Carryover: Fair - Patient/Family Education Comment: -patient inquired to this check writer salesperson "why is it that my nerves on the left leg aren't working"; PT educated patient that is is mosty likely due to an exacerbation of his MS; patient remains qith quizzical look on his face and PT educated patient regarding MS and the progressive nature; patient appears to have difficulty processing and retaining education regarding diagnosis. - educated on POC, therapy schedule, therapy goals, safety, mobility, transfers, postural control, purpose of therapies - Assessment/Plan Assessment: Pt participates in 1:1 recreation therapy sessions. Pt demonstrates increase carryover of task rules and problem solving after orientation to tasks. Pt requires min verbal cues for initiation to attend to task. Pt continues to be present flat affect throughout sessions. Pt has received education and support. Pt would continue to benefit from participating in recreation therapy sessions. - Goals Timeframe: 7 days Goals: -bump 4 steps with mod A. -manual WC x 150 feet with distant supervision. -ambulate 10 feet in // bars with mod A. -mod A with transfers. -CS for rolling. -min A for supine to/from sit - Provider License Number: [id number] Occupational Therapy - Arousal/Attention/Orientation Patient Orientation: Person, Place, Time, Appropriate to Age, Appropriate to Situation - ADL/IADL Self Feeding: Supervision, Verbal Cues, Set-up Help Grooming: Verbal Cues, Set-up Help, Contact Guard Bathing-Upper Extremity: Maximum Assistance Bathing-Lower Extremity: Maximum Assistance, Dependent Dressing-Upper Extremity: Maximum Assistance Dressing-Lower Extremity: Dependent - Sitting Balance Static Sitting: Supervision Dynamic Sitting: Contact Guard Assist, Minimal Assistance - Transfers Wheelchair to Bed Transfers: Maximum Assistance Toilet Transfers: Maximum Assistance Comment: to trial bathing transfers in future sessions. Pt noted with severe LE strength limitaitons and + buckling LLE in standing. - Upper Extremity Status Right Upper Extremity Comment: AROM t/o RUE WFL. Left Upper Extremity Comment: Pt's L shldr at rest is noted with increased laxivity and at least 1 finger sublux however Pt is able to self-approximate when initiating shoulder movement. Pt is noted with slight limited AROM t/.o . PROM WFL - Pain Pain (assessed during therapy session): 0 - Insight/Carryover Insight/Carryover: Fair - Patient/Family Education Comment: -patient inquired to this check writer salesperson "why is it that my nerves on the left leg aren't working"; PT educated patient that is is mosty likely due to an exacerbation of his MS; patient remains qith quizzical look on his face and PT educated patient regarding MS and the progressive nature; patient appears to have difficulty processing and retaining education regarding diagnosis. - educated on POC, therapy schedule, therapy goals, safety, mobility, transfers, postural control, purpose of therapies - Assessment/Plan Assessment: Pt participates in 1:1 recreation therapy sessions. Pt demonstrates increase carryover of task rules and problem solving after orientation to tasks. Pt requires min verbal cues for initiation to attend to task. Pt continues to be present flat affect throughout sessions. Pt has received education and support. Pt would continue to benefit from participating in recreation therapy sessions. - Goals Timeframe: 7 days Goals: -bump 4 steps with mod A. -manual WC x 150 feet with distant supervision. -ambulate 10 feet in // bars with mod A. -mod A with transfers. -CS for rolling. -min A for supine to/from sit - Provider Therapist: Adrianna VELASCO Speech Therapy - Consult Information Patient on Program: Yes Medical Diagnosis: MS exacerbation Treatment Diagnosis: mild cognitive deficits - Assessment Problem Solving Impairment: Mild Comment: impaired problem solving/reasoning for high level tasks Memory Impairment: Mild - Plan Assessment: Pt participates in 1:1 recreation therapy sessions. Pt demonstrates increase carryover of task rules and problem solving after orientation to tasks. Pt requires min verbal cues for initiation to attend to task. Pt continues to be present flat affect throughout sessions. Pt has received education and support. Pt would continue to benefit from participating in recreation therapy sessions. - Provider Therapist: Martha Wagner License Number: [id number] Recreational Therapy - Participation Participation: Participates in Individual and/or Group Sessions - Attendance Attendance: 3-5 times per week - Activities Leisure Activities: Cards and Games - Socialization Level of Socialization: Initiates/interacts freely with care givers and peer - Diversional Time Diversional Time: television - Assessment Assessment/Plan: Pt participates in 1:1 recreation therapy sessions. Pt demonstrates increase carryover of task rules and problem solving after orientation to tasks. Pt requires min verbal cues for initiation to attend to task. Pt continues to be present flat affect throughout sessions. Pt has received education and support. Pt would continue to benefit from participating in recreation therapy sessions. Problems Currently Limiting Participation: decrease leisure awareness level, decrease community leisure awareness level, anxiety, depression, L side weakness Goals and Time Frame: Pt will be encouraged to participate in 1:1 and group recreation therapy sessions 3-5x week to improve leisure awareness level, community leisure awareness level, improve arousal level, and L side weakness. - Provider Therapist: Ibeth Guzman, [employer] #[id number] Nutrition - Current Diet Current Diet/ Supplement/ Feedings: Moderate consistent CHO - Appetite Percent Meal Consumed: 75-100% - Assessment/Goals/Time Frame Assessment/Goals/Time Frame: Pt at low nutritional risk. Follow-up due on 06/10 - Provider Provider: Merced Willett RD Case Management - Discharge Plan Discharge Plan: Home with significant other/family Rehabilitation Plan - Treatment Plan Treatment Plan: Physical Therapy, Occupational Therapy, Speech, Dietary, Patient /Family Education - Discharge Plan Estimated Date of Discharge: 06/16/16 Discharge to: Subacute (Dr Christianson is his neurologist)
--- NOTE | 2016-06-07 12:21 | CP.PCM.PN ---
Subjective - Date & Time of Evaluation Date of Evaluation: 06/07/16 Time of Evaluation: 12:00 - Subjective Subjective: Hospitalist Progress Note (Patient was seen and examined at 12 PM 06/07/16 621-1) 70 year old male who was addmitted to Acute Rehab at [facility] on 05/31/16 from [facility] [place] admitted on 05/23/16 with complaints of left sided weakness s/p fall. He was diagnosed and treated (with IV Steroids) for MS Exacerbation as well as treated for Acute Cystitis (with Rocephin). Upon his admission to [facility] he was noted to have limited movement in the left leg and left arm. MRI Brain 05/23/16: NO significant change to T2 hyperintensities which have a pattern suspicious for demyelination. Bladder U/S 05/25/16: possible cystitis Lumbar MRI 05/24/16: NO significant change, post operative and degenerative findings with stenosis, thickening of urinary bladder ROS: Last bowel movement was last night Able to void urine on his own after Hobbs D/C'd 06/06/16 Can't extend Left Lower Leg since one week from presentation from [facility] but is able to flex his hip Weakness in the Left Arm and Left Leg is slowly improving NO other complaint upon FULL ROS Exam: HEENT: NCA, EOMI, PERRLA, NO cervical lymphadenopathy, NO thyromegaly, NO pharyngeal erythema/exudate, Oral mucosa and nasal turbinates are moist Cardiology: NS1 and NS2, NO M/R/G Respiratory: CTA B/L, NO R/R/W GI: BS x 4, Soft, NT, Central Obesity (can't adequately palpate liver and spleen ), NO guarding/rebound tenderness Extremities: NO edema, Pulses are strong and equal, Capillary Refill is 2 seconds Neurology: CN II throug XII are grossly intact, 5/5 strength with flexion and extension in the bilateral UE and Right LE, Left UE 4/5 strength with flexion and extension, Left LE 3/5 stregth with flexion/extension of hip and 1/5 strength with flexion/extension of the left lower leg Assessment and Plan: 1). MS Exacerbation Finished Prednisone Taper on 06/04/16 PT/OT [employer]ist Dr. Llanos Carbamazepine 100 mg PO TID F/U with Pain Management Dr. Calderon as outpatient F/U with Neurologist Dr. Chatterjee as outpatient whom the patient states he see once a month 2). Urinary Retention/Hydronephrosis/Acute Cystitis Hobbs was discontinued 06/06/16 and since then patient has been voiding on his own without any difficulty Treated with Rocephin at [facility] for the Cystitis F/U with Urologist Dr. Velasquez as outpatient Flomax 0.4 mg PO 1x/day Proscar 5 mg PO 1x/day 3). Hx DM2 RISS at 6:30 AM and 9:30 PM F/U HgBA1C Currently Controlled 4). LY CPAP at night 5). Anemia of Chronic Disease FeSO4 325 mg O TID HgB/Hct are currently stable 6). Hx HTN Enalapril 5 mg PO 1x/day Currently B/P is controlled 7). Prophylactic Measures Colace 100 mg PO 3x/day Enulose 20 gm PO 2x/day PRN Constipation Anusol HC 25 mg MT Q12H Hemerrhoids Lovenox 40 mg SQ 1x/day Protonix 40 mg PO 1x/day MVI PO 1x/day Ergocalciferol 50,000 Units PO once a week Objective - Vital Signs/Intake and Output Vital Signs (last 24 hours): Temp Pulse Resp BP Pulse Ox 97.6 F 58 L 19 122/72 96 06/07/16 09:05 06/07/16 09:05 06/07/16 09:05 06/07/16 09:05 06/07/16 09:05 - Medications Medications: Current Medications Carbamazepine (Tegretol) 100 mg PO TID [facility] Last Admin: 06/07/16 08:19 Dose: 100 mg Docusate Sodium (Colace) 100 mg PO BID [facility] Last Admin: 06/07/16 08:19 Dose: 100 mg Enalapril Maleate (Vasotec) 5 mg PO DAILY [facility] Last Admin: 06/07/16 08:21 Dose: 5 mg Enoxaparin Sodium (Lovenox) 40 mg SC DAILY [facility] PRN Reason: Protocol Last Admin: 06/07/16 08:20 Dose: 40 mg Ergocalciferol (Drisdol 50,000 Intl Units Cap) 1 cap PO QWK [facility] Ferrous Sulfate (Feosol) 325 mg PO TID [facility] Last Admin: 06/07/16 08:19 Dose: 325 mg Finasteride (Proscar) 5 mg PO DAILY [facility] Last Admin: 06/07/16 08:18 Dose: 5 mg Hydrocortisone (Anusol-Hc) 25 mg MT Q12 [facility] Last Admin: 06/07/16 08:18 Dose: 25 mg Insulin Human Lispro (Humalog) 0 units SC 0630,2130 [facility] PRN Reason: Protocol Last Admin: 06/07/16 06:36 Dose: Not Given Lactulose (Enulose) 20 gm PO BID PRN PRN Reason: Constipation Multivitamins/Minerals (Therapeutic-M Tab) 1 tab PO DAILY [facility] Last Admin: 06/07/16 08:19 Dose: 1 tab Pantoprazole Sodium (Protonix Ec Tab) 40 mg PO DAILY [facility] Last Admin: 06/07/16 08:19 Dose: 40 mg Tamsulosin HCl (Flomax) 0.4 mg PO DAILY [facility] Last Admin: 06/07/16 08:18 Dose: 0.4 mg - Labs Labs: 06/07/16 07:05 06/01/16 07:29 PT 10.8 SECONDS (9.6-11.2) 06/01/16 07:29 INR 1.04 (0.92-1.08) 06/01/16 07:29 APTT 26.3 SECONDS (23.3-32.5) 06/01/16 07:29
--- NOTE | 2016-06-07 16:21 | CP.PCM.PN ---
Subjective - Date & Time of Evaluation Date of Evaluation: 06/07/16 Time of Evaluation: 16:19 - Subjective Subjective: Patient seen in room denies sob/cp or joint pain aware that not making good progress, but not realistic as to the implications of this. discussed at length. He is max A for most activities Dr Dawkins to return and continue patient care Objective - Vital Signs/Intake and Output Vital Signs (last 24 hours): Temp Pulse Resp BP Pulse Ox 97.6 F 58 L 19 122/72 96 06/07/16 09:05 06/07/16 09:05 06/07/16 09:05 06/07/16 09:05 06/07/16 09:05 - Medications Medications: Current Medications Carbamazepine (Tegretol) 100 mg PO TID [facility] Last Admin: 06/07/16 12:53 Dose: 100 mg Docusate Sodium (Colace) 100 mg PO BID [facility] Last Admin: 06/07/16 08:19 Dose: 100 mg Enalapril Maleate (Vasotec) 5 mg PO DAILY [facility] Last Admin: 06/07/16 08:21 Dose: 5 mg Enoxaparin Sodium (Lovenox) 40 mg SC DAILY [facility] PRN Reason: Protocol Last Admin: 06/07/16 08:20 Dose: 40 mg Ergocalciferol (Drisdol 50,000 Intl Units Cap) 1 cap PO QWK [facility] Ferrous Sulfate (Feosol) 325 mg PO TID [facility] Last Admin: 06/07/16 12:53 Dose: 325 mg Finasteride (Proscar) 5 mg PO DAILY [facility] Last Admin: 06/07/16 08:18 Dose: 5 mg Hydrocortisone (Anusol-Hc) 25 mg [place] Q12 [facility] Last Admin: 06/07/16 08:18 Dose: 25 mg Insulin Human Lispro (Humalog) 0 units SC 0630,2130 [facility] PRN Reason: Protocol Last Admin: 06/07/16 06:36 Dose: Not Given Lactulose (Enulose) 20 gm PO BID PRN PRN Reason: Constipation Multivitamins/Minerals (Therapeutic-M Tab) 1 tab PO DAILY [facility] Last Admin: 06/07/16 08:19 Dose: 1 tab Pantoprazole Sodium (Protonix Ec Tab) 40 mg PO DAILY [facility] Last Admin: 06/07/16 08:19 Dose: 40 mg Tamsulosin HCl (Flomax) 0.4 mg PO DAILY [facility] Last Admin: 06/07/16 08:18 Dose: 0.4 mg - Labs Labs: 06/07/16 07:05 06/01/16 07:29 PT 10.8 SECONDS (9.6-11.2) 06/01/16 07:29 INR 1.04 (0.92-1.08) 06/01/16 07:29 APTT 26.3 SECONDS (23.3-32.5) 06/01/16 07:29
[2016-06-08] MEDS: Insulin Lispro (humaLOG) 100 Units/ml Inj SC SCH ×2 (06:56→21:00)
[2016-06-08 08:25] LABS: BLOOD UREA NITROGEN 15 mg/dl (9-20); CALCIUM 8.8 mg/dL (8.4-10.2); CARBON DIOXIDE 29 mmol/L (22-30); CHLORIDE 102 mmol/L (98-107); GFR AFRICAN-AMERICAN > 60; GLUCOSE,RANDOM 99 mg/dL (75-110); POTASSIUM 4.4 MMOL/L (3.6-5.0); SODIUM 142 mmol/l (132-148)
[2016-06-08] MEDS: Enoxaparin 40 mg Syringe SC SCH (08:54)
[2016-06-08] MEDS: carBAMazepine Chew Tab 100 MG Chew Tab PO SCH ×3 (08:54→16:54)
[2016-06-08] MEDS: Pantoprazole 40 mg EC Tab PO SCH (08:54)
[2016-06-08] MEDS: Multivitamin With Minerals Tab PO SCH (08:54)
--- NOTE | 2016-06-08 19:17 | CP.PCM.PN ---
Subjective - Date & Time of Evaluation Date of Evaluation: 06/08/16 Time of Evaluation: 13:00 - Subjective Subjective: no acute complaints of any pain Objective - Vital Signs/Intake and Output Vital Signs (last 24 hours): Temp Pulse Resp BP Pulse Ox 97.3 F L 68 18 142/78 99 06/08/16 15:59 06/08/16 15:59 06/08/16 15:59 06/08/16 15:59 06/08/16 15:59 - Medications Medications: Current Medications Carbamazepine (Tegretol) 100 mg PO TID [facility] Last Admin: 06/08/16 16:54 Dose: 100 mg Docusate Sodium (Colace) 100 mg PO BID [facility] Last Admin: 06/08/16 16:54 Dose: 100 mg Enalapril Maleate (Vasotec) 5 mg PO DAILY [facility] Last Admin: 06/08/16 08:54 Dose: 5 mg Enoxaparin Sodium (Lovenox) 40 mg SC DAILY [facility] PRN Reason: Protocol Ergocalciferol (Drisdol 50,000 Intl Units Cap) 1 cap PO QWK [facility] Ferrous Sulfate (Feosol) 325 mg PO TID [facility] Last Admin: 06/08/16 16:54 Dose: 325 mg Finasteride (Proscar) 5 mg PO DAILY [facility] Last Admin: 06/08/16 08:54 Dose: 5 mg Hydrocortisone (Anusol-Hc) 25 mg [place] Q12 [facility] Last Admin: 06/08/16 08:53 Dose: Not Given Insulin Human Lispro (Humalog) 0 units SC 0630,2130 [facility] PRN Reason: Protocol Last Admin: 06/08/16 06:56 Dose: Not Given Lactulose (Enulose) 20 gm PO BID PRN PRN Reason: Constipation Multivitamins/Minerals (Therapeutic-M Tab) 1 tab PO DAILY [facility] Last Admin: 06/08/16 08:54 Dose: 1 tab Pantoprazole Sodium (Protonix Ec Tab) 40 mg PO DAILY [facility] Last Admin: 06/08/16 08:54 Dose: 40 mg Tamsulosin HCl (Flomax) 0.4 mg PO DAILY [facility] Last Admin: 06/08/16 08:53 Dose: 0.4 mg - Labs Labs: 06/07/16 07:05 06/08/16 07:00 PT 10.8 SECONDS (9.6-11.2) 06/01/16 07:29 INR 1.04 (0.92-1.08) 06/01/16 07:29 APTT 26.3 SECONDS (23.3-32.5) 06/01/16 07:29 - Head Exam Head Exam: ATRAUMATIC, NORMAL INSPECTION, NORMOCEPHALIC - Eye Exam Eye Exam: Normal appearance Pupil Exam: NORMAL ACCOMODATION - ENT Exam ENT Exam: Mucous Membranes Moist - Neck Exam Neck Exam: Normal Inspection - Respiratory Exam Respiratory Exam: NORMAL BREATHING PATTERN - Cardiovascular Exam Cardiovascular Exam: REGULAR RHYTHM - GI/Abdominal Exam GI & Abdominal Exam: Normal Bowel Sounds - Rectal Exam Rectal Exam: NORMAL INSPECTION - Exam External exam: NORMAL EXTERNAL EXAM - Extremities Exam Extremities Exam: Normal Capillary Refill, Normal Inspection - Back Exam Back Exam: NORMAL INSPECTION - Neurological Exam Neurological Exam: Alert, Awake, CN II-XII Intact Neuro motor strength exam: Left Upper Extremity: 4, Right Upper Extremity: 3, Left Lower Extremity: 4, Right Lower Extremity: 3 - Psychiatric Exam Psychiatric exam: Normal Affect, Normal Mood - Skin Skin Exam: Normal Color Assessment and Plan (1) Neuralgia Status: Acute (2) UTI (urinary tract infection) Status: Acute (3) Urinary retention Status: Acute (4) Multiple sclerosis exacerbation Assessment & Plan: physical and occupatioAL THERAPY REC THERAPY Status: Acute
[2016-06-09] MEDS: Insulin Lispro (humaLOG) 100 Units/ml Inj SC SCH ×2 (06:36→21:37)
[2016-06-09] MEDS: Multivitamin With Minerals Tab PO SCH (09:00)
[2016-06-09] MEDS: carBAMazepine Chew Tab 100 MG Chew Tab PO SCH ×3 (09:00→16:43)
[2016-06-09] MEDS: Pantoprazole 40 mg EC Tab PO SCH (09:00)
[2016-06-09] MEDS: Enoxaparin 40 mg Syringe SC SCH (09:00)
--- NOTE | 2016-06-09 12:08 | CP.PCM.PN ---
Subjective - Date & Time of Evaluation Date of Evaluation: 06/09/16 Time of Evaluation: 11:00 - Subjective Subjective: no acute complaints of pain , feels he is getting better Objective - Vital Signs/Intake and Output Vital Signs (last 24 hours): Temp Pulse Resp BP Pulse Ox 97.6 F 53 L 22 151/76 H 96 06/09/16 08:09 06/09/16 08:09 06/09/16 08:09 06/09/16 08:09 06/09/16 08:09 - Medications Medications: Current Medications Carbamazepine (Tegretol) 100 mg PO TID [facility] Last Admin: 06/09/16 09:00 Dose: 100 mg Docusate Sodium (Colace) 100 mg PO BID [facility] Last Admin: 06/09/16 09:00 Dose: 100 mg Enalapril Maleate (Vasotec) 5 mg PO DAILY [facility] Last Admin: 06/09/16 09:00 Dose: 5 mg Enoxaparin Sodium (Lovenox) 40 mg SC DAILY [facility] PRN Reason: Protocol Last Admin: 06/09/16 09:00 Dose: 40 mg Ergocalciferol (Drisdol 50,000 Intl Units Cap) 1 cap PO QWK [facility] Ferrous Sulfate (Feosol) 325 mg PO TID [facility] Last Admin: 06/09/16 08:59 Dose: 325 mg Finasteride (Proscar) 5 mg PO DAILY [facility] Last Admin: 06/09/16 09:00 Dose: 5 mg Hydrocortisone (Anusol-Hc) 25 mg [place] Q12 [facility] Last Admin: 06/09/16 08:59 Dose: 25 mg Insulin Human Lispro (Humalog) 0 units SC 0630,2130 [facility] PRN Reason: Protocol Last Admin: 06/09/16 06:36 Dose: Not Given Lactulose (Enulose) 20 gm PO BID PRN PRN Reason: Constipation Multivitamins/Minerals (Therapeutic-M Tab) 1 tab PO DAILY [facility] Last Admin: 06/09/16 09:00 Dose: 1 tab Pantoprazole Sodium (Protonix Ec Tab) 40 mg PO DAILY [facility] Last Admin: 06/09/16 09:00 Dose: 40 mg Tamsulosin HCl (Flomax) 0.4 mg PO DAILY [facility] Last Admin: 06/09/16 09:00 Dose: 0.4 mg - Labs Labs: 06/07/16 07:05 06/08/16 07:00 PT 10.8 SECONDS (9.6-11.2) 06/01/16 07:29 INR 1.04 (0.92-1.08) 06/01/16 07:29 APTT 26.3 SECONDS (23.3-32.5) 06/01/16 07:29 - Head Exam Head Exam: ATRAUMATIC, NORMAL INSPECTION, NORMOCEPHALIC - Eye Exam Eye Exam: EOMI, Normal appearance, PERRL Pupil Exam: NORMAL ACCOMODATION - ENT Exam ENT Exam: Mucous Membranes Moist, Normal Exam - Neck Exam Neck Exam: Normal Inspection - Respiratory Exam Respiratory Exam: NORMAL BREATHING PATTERN - Cardiovascular Exam Cardiovascular Exam: REGULAR RHYTHM - GI/Abdominal Exam GI & Abdominal Exam: Normal Bowel Sounds - Rectal Exam Rectal Exam: NORMAL INSPECTION - Exam External exam: NORMAL EXTERNAL EXAM - Extremities Exam Extremities Exam: Normal Capillary Refill, Normal Inspection - Back Exam Back Exam: NORMAL INSPECTION - Neurological Exam Neurological Exam: Alert, Awake Neuro motor strength exam: Left Upper Extremity: 3, Right Upper Extremity: 4, Left Lower Extremity: 3, Right Lower Extremity: 4 - Psychiatric Exam Psychiatric exam: Normal Affect, Normal Mood - Skin Skin Exam: Dry, Intact, Normal Color Assessment and Plan (1) Neuralgia Status: Acute (2) UTI (urinary tract infection) Status: Acute (3) Urinary retention Status: Acute (4) Multiple sclerosis exacerbation Assessment & Plan: plan for physical occupational and rec therapy mobility, transfers and gait monitor skin and vitals Status: Acute
--- NOTE | 2016-06-09 16:42 | CP.PCM.PN ---
Subjective - Date & Time of Evaluation Date of Evaluation: 06/09/16 Time of Evaluation: 13:30 - Subjective Subjective: Pt seen and examined. No complaint. Objective - Vital Signs/Intake and Output Vital Signs (last 24 hours): Temp Pulse Resp BP Pulse Ox 98.4 F 66 20 111/69 98 06/09/16 15:57 06/09/16 15:57 06/09/16 15:57 06/09/16 15:57 06/09/16 15:57 - Medications Medications: Current Medications Carbamazepine (Tegretol) 100 mg PO TID [facility] Last Admin: 06/09/16 12:24 Dose: 100 mg Docusate Sodium (Colace) 100 mg PO BID [facility] Last Admin: 06/09/16 09:00 Dose: 100 mg Enalapril Maleate (Vasotec) 5 mg PO DAILY [facility] Last Admin: 06/09/16 09:00 Dose: 5 mg Enoxaparin Sodium (Lovenox) 40 mg SC DAILY [facility] PRN Reason: Protocol Last Admin: 06/09/16 09:00 Dose: 40 mg Ergocalciferol (Drisdol 50,000 Intl Units Cap) 1 cap PO QWK [facility] Ferrous Sulfate (Feosol) 325 mg PO TID [facility] Last Admin: 06/09/16 12:24 Dose: 325 mg Finasteride (Proscar) 5 mg PO DAILY [facility] Last Admin: 06/09/16 09:00 Dose: 5 mg Hydrocortisone (Anusol-Hc) 25 mg [place] Q12 [facility] Last Admin: 06/09/16 08:59 Dose: 25 mg Insulin Human Lispro (Humalog) 0 units SC 0630,2130 [facility] PRN Reason: Protocol Last Admin: 06/09/16 06:36 Dose: Not Given Lactulose (Enulose) 20 gm PO BID PRN PRN Reason: Constipation Multivitamins/Minerals (Therapeutic-M Tab) 1 tab PO DAILY [facility] Last Admin: 06/09/16 09:00 Dose: 1 tab Pantoprazole Sodium (Protonix Ec Tab) 40 mg PO DAILY [facility] Last Admin: 06/09/16 09:00 Dose: 40 mg Tamsulosin HCl (Flomax) 0.4 mg PO DAILY [facility] Last Admin: 06/09/16 09:00 Dose: 0.4 mg - Labs Labs: 06/07/16 07:05 06/08/16 07:00 PT 10.8 SECONDS (9.6-11.2) 06/01/16 07:29 INR 1.04 (0.92-1.08) 06/01/16 07:29 APTT 26.3 SECONDS (23.3-32.5) 06/01/16 07:29 - Constitutional Appears: No Acute Distress - Head Exam Head Exam: absent: ATRAUMATIC - Eye Exam Eye Exam: absent: Scleral icterus - ENT Exam ENT Exam: Mucous Membranes Moist - Neck Exam Neck Exam: absent: Meningismus - Respiratory Exam Respiratory Exam: absent: Rhonchi, Wheezes, Respiratory Distress - Cardiovascular Exam Cardiovascular Exam: REGULAR RHYTHM, +S1, +S2 - GI/Abdominal Exam GI & Abdominal Exam: Soft. absent: Tenderness - Rectal Exam Rectal Exam: Deferred - Neurological Exam Neurological Exam: Alert, Oriented x3 - Psychiatric Exam Psychiatric exam: Suicidal Ideation - Skin Skin Exam: Dry, Intact Assessment and Plan (1) Multiple sclerosis exacerbation Status: Acute (2) Urinary retention Status: Acute (3) UTI (urinary tract infection) Status: Acute (4) HTN (hypertension) Status: Acute (5) DM2 (diabetes mellitus, type 2) Status: Acute (6) LY (obstructive sleep apnea) Status: Acute - Assessment and Plan (Free Text) Assessment: 70 yo male with history of DM II, HTN, Anemia and MS admitted at [facility] on because of a fall and left sided weakness. He was diagnosed with MS exacerbation and managed with steroids. He was transferred to Acute Rehab for therapy due to his left sided weakness. Pt also developed urinary retention and UTI while at [facility]. 1. MS Exacerbation continue PT/OT 2. Urinary Retention off barrios catheter Continue Flomax and Avodart 3. UTI resolved 4. HTN BP stable continue Enalapril 5. DM II BS controlled with diet 6. LY CPAP at nights to sleep
[2016-06-10] MEDS: Insulin Lispro (humaLOG) 100 Units/ml Inj SC SCH ×2 (06:43→21:17)
[2016-06-10 07:33] LABS: HEMATOCRIT 38.4 % (35.0-51.0); MEAN CELL VOLUME 81.3 fl (80.0-94.0); MEAN CORPUSCULAR HEMOGLOBIN 25.5 pg (27.0-31.0); MEAN CORPUSCULAR HGB CONC 31.3 g/dL (33.0-37.0); WHITE BLOOD COUNT 6.7 K/uL (4.8-10.8)
[2016-06-10] MEDS: Enoxaparin 40 mg Syringe SC SCH (08:46)
[2016-06-10] MEDS: carBAMazepine Chew Tab 100 MG Chew Tab PO SCH ×3 (08:47→16:49)
[2016-06-10] MEDS: Pantoprazole 40 mg EC Tab PO SCH (08:47)
[2016-06-10] MEDS: Multivitamin With Minerals Tab PO SCH (08:47)
[2016-06-11] MEDS: Insulin Lispro (humaLOG) 100 Units/ml Inj SC SCH ×2 (05:58→21:00)
[2016-06-11] MEDS: Enoxaparin 40 mg Syringe SC SCH (08:24)
[2016-06-11] MEDS: carBAMazepine Chew Tab 100 MG Chew Tab PO SCH ×3 (08:25→17:04)
[2016-06-11] MEDS: Pantoprazole 40 mg EC Tab PO SCH (08:25)
[2016-06-11] MEDS: Multivitamin With Minerals Tab PO SCH (08:26)
[2016-06-12] MEDS: Insulin Lispro (humaLOG) 100 Units/ml Inj SC SCH ×2 (06:00→21:10)
[2016-06-12] MEDS: Enoxaparin 40 mg Syringe SC SCH (09:11)
[2016-06-12] MEDS: carBAMazepine Chew Tab 100 MG Chew Tab PO SCH ×3 (09:11→16:57)
[2016-06-12] MEDS: Multivitamin With Minerals Tab PO SCH (09:11)
[2016-06-12] MEDS: Pantoprazole 40 mg EC Tab PO SCH (09:12)
--- NOTE | 2016-06-12 16:52 | CP.PCM.PN ---
Subjective - Date & Time of Evaluation Date of Evaluation: 06/12/16 Time of Evaluation: 16:50 - Subjective Subjective: Hospitalist Progress Note (Patient was seen and examined 4:50 PM 06/12/16 621-1) 70 year old male who was addmitted to Acute Rehab at [facility] on 05/31/16 from [facility] where he was admitted on 05/23/16 with complaints of left sided weakness s/p fall. He was diagnosed and treated (with IV Steroids) for MS Exacerbation as well as treated for Acute Cystitis (with Rocephin). Upon his admission to [facility] he was noted to have limited movement in the left leg and left arm. MRI Brain 05/23/16: NO significant change to T2 hyperintensities which have a pattern suspicious for demyelination. Bladder U/S 05/25/16: possible cystitis Lumbar MRI 05/24/16: NO significant change, post operative and degenerative findings with stenosis, thickening of urinary bladder ROS: Last bowel movement was this morning Able to void urine on his own after Hobbs D/C'd 06/06/16 Weakness in the Left Arm and Left Leg is slowly improving. He states he is feeling somewhat stronger on the left side of his body NO other complaint upon FULL ROS Exam: HEENT: NCA, EOMI, PERRLA, NO cervical lymphadenopathy, NO thyromegaly, NO pharyngeal erythema/exudate, Oral mucosa and nasal turbinates are moist Cardiology: NS1 and NS2, NO M/R/G Respiratory: CTA B/L, NO R/R/W GI: BS x 4, Soft, NT, Central Obesity (can't adequately palpate liver and spleen ), NO guarding/rebound tenderness Extremities: NO edema, Pulses are strong and equal, Capillary Refill is 2 seconds Neurology: CN II throug XII are grossly intact, 5/5 strength with flexion and extension in the bilateral UE and Right LE, Left UE 4/5 strength with flexion and extension, Left LE 3/5 stregth with flexion/extension of hip and 1/5 strength with flexion/extension of the left lower leg Assessment and Plan: 1). MS Exacerbation Finished Prednisone Taper on 06/04/16 PT/OT Stepdown Nurse Dr. Llanos Carbamazepine 100 mg PO TID F/U with Pain Management Dr. Calderon as outpatient F/U with Neurologist Dr. Chatterjee as outpatient whom the patient states he see once a month 2). Urinary Retention/Hydronephrosis/Acute Cystitis Hobbs was discontinued 06/06/16 and since then patient has been voiding on his own without any difficulty Treated with Rocephin at [facility] for the Cystitis F/U with Urologist Dr. Velasquez as outpatient Flomax 0.4 mg PO 1x/day Proscar 5 mg PO 1x/day 3). Hx DM2 RISS at 6:30 AM and 9:30 PM F/U HgBA1C Currently Controlled 4). LY CPAP at night Bandage at the bridge of the nose when wearing CPAP mask as mask caused an abrasion there 5). Anemia of Chronic Disease FeSO4 325 mg O TID HgB/Hct are currently stable 6). Hx HTN Enalapril 5 mg PO 1x/day Currently B/P is controlled 7). Prophylactic Measures Colace 100 mg PO 3x/day Enulose 20 gm PO 2x/day PRN Constipation Anusol HC 25 mg [place] Q12H Hemerrhoids Lovenox 40 mg SQ 1x/day Protonix 40 mg PO 1x/day MVI PO 1x/day Ergocalciferol 50,000 Units PO once a week Objective - Vital Signs/Intake and Output Vital Signs (last 24 hours): Temp Pulse Resp BP Pulse Ox 97.5 F L 64 20 136/83 98 06/12/16 16:14 06/12/16 16:14 06/12/16 16:14 06/12/16 16:14 06/12/16 16:14 - Medications Medications: Current Medications Carbamazepine (Tegretol) 100 mg PO TID [facility] Last Admin: 06/12/16 12:35 Dose: 100 mg Docusate Sodium (Colace) 100 mg PO BID [facility] Last Admin: 06/12/16 09:11 Dose: 100 mg Enalapril Maleate (Vasotec) 5 mg PO DAILY [facility] Last Admin: 06/12/16 09:12 Dose: 5 mg Enoxaparin Sodium (Lovenox) 40 mg SC DAILY [facility] PRN Reason: Protocol Last Admin: 06/12/16 09:11 Dose: 40 mg Ergocalciferol (Drisdol 50,000 Intl Units Cap) 1 cap PO QWK [facility] Last Admin: 06/11/16 08:25 Dose: 1 cap Ferrous Sulfate (Feosol) 325 mg PO TID [facility] Last Admin: 06/12/16 12:35 Dose: 325 mg Finasteride (Proscar) 5 mg PO DAILY [facility] Last Admin: 06/12/16 09:12 Dose: 5 mg Hydrocortisone (Anusol-Hc) 25 mg [place] Q12 [facility] Last Admin: 06/12/16 09:10 Dose: 25 mg Insulin Human Lispro (Humalog) 0 units SC 0630,2130 [facility] PRN Reason: Protocol Last Admin: 06/12/16 06:00 Dose: Not Given Lactulose (Enulose) 20 gm PO BID PRN PRN Reason: Constipation Multivitamins/Minerals (Therapeutic-M Tab) 1 tab PO DAILY [facility] Last Admin: 06/12/16 09:11 Dose: 1 tab Pantoprazole Sodium (Protonix Ec Tab) 40 mg PO DAILY [facility] Last Admin: 06/12/16 09:12 Dose: 40 mg Tamsulosin HCl (Flomax) 0.4 mg PO DAILY [facility] Last Admin: 06/12/16 09:11 Dose: 0.4 mg - Labs Labs: 06/10/16 05:30 06/08/16 07:00 PT 10.8 SECONDS (9.6-11.2) 06/01/16 07:29 INR 1.04 (0.92-1.08) 06/01/16 07:29 APTT 26.3 SECONDS (23.3-32.5) 06/01/16 07:29
[2016-06-13] MEDS: Insulin Lispro (humaLOG) 100 Units/ml Inj SC SCH ×2 (06:05→23:00)
[2016-06-13 06:14] LABS: HEMATOCRIT 38.5 % (35.0-51.0); MEAN CELL VOLUME 80.1 fl (80.0-94.0); MEAN CORPUSCULAR HEMOGLOBIN 26.2 pg (27.0-31.0); MEAN CORPUSCULAR HGB CONC 32.7 g/dL (33.0-37.0); RED CELL DISTRIBUTION WIDTH 19.5 % (11.5-14.5)
[2016-06-13] MEDS: Multivitamin With Minerals Tab PO SCH (09:02)
[2016-06-13] MEDS: Pantoprazole 40 mg EC Tab PO SCH (09:02)
[2016-06-13] MEDS: Enoxaparin 40 mg Syringe SC SCH (09:03)
[2016-06-13] MEDS: carBAMazepine Chew Tab 100 MG Chew Tab PO SCH ×3 (09:03→17:18)
--- NOTE | 2016-06-13 12:17 | CP.PCM.PN ---
Subjective - Date & Time of Evaluation Date of Evaluation: 06/13/16 Time of Evaluation: 10:00 - Subjective Subjective: no acute complaints at present Objective - Vital Signs/Intake and Output Vital Signs (last 24 hours): Temp Pulse Resp BP Pulse Ox 97.9 F 59 L 20 135/75 99 06/13/16 09:00 06/13/16 09:00 06/13/16 09:00 06/13/16 09:00 06/13/16 09:00 - Medications Medications: Current Medications Carbamazepine (Tegretol) 100 mg PO TID [facility] Last Admin: 06/13/16 09:03 Dose: 100 mg Docusate Sodium (Colace) 100 mg PO BID [facility] Last Admin: 06/13/16 09:02 Dose: 100 mg Enalapril Maleate (Vasotec) 5 mg PO DAILY [facility] Last Admin: 06/13/16 09:02 Dose: 5 mg Enoxaparin Sodium (Lovenox) 40 mg SC DAILY [facility] PRN Reason: Protocol Last Admin: 06/13/16 09:03 Dose: 40 mg Ergocalciferol (Drisdol 50,000 Intl Units Cap) 1 cap PO QWK [facility] Last Admin: 06/11/16 08:25 Dose: 1 cap Ferrous Sulfate (Feosol) 325 mg PO TID [facility] Last Admin: 06/13/16 09:03 Dose: 325 mg Finasteride (Proscar) 5 mg PO DAILY [facility] Last Admin: 06/13/16 09:02 Dose: 5 mg Hydrocortisone (Anusol-Hc) 25 mg [place] Q12 [facility] Last Admin: 06/13/16 09:02 Dose: 25 mg Insulin Human Lispro (Humalog) 0 units SC 0630,2130 [facility] PRN Reason: Protocol Last Admin: 06/13/16 06:05 Dose: Not Given Lactulose (Enulose) 20 gm PO BID PRN PRN Reason: Constipation Multivitamins/Minerals (Therapeutic-M Tab) 1 tab PO DAILY [facility] Last Admin: 06/13/16 09:02 Dose: 1 tab Pantoprazole Sodium (Protonix Ec Tab) 40 mg PO DAILY [facility] Last Admin: 06/13/16 09:02 Dose: 40 mg Tamsulosin HCl (Flomax) 0.4 mg PO DAILY [facility] Last Admin: 06/13/16 09:02 Dose: 0.4 mg - Labs Labs: 06/13/16 05:00 06/08/16 07:00 PT 10.8 SECONDS (9.6-11.2) 06/01/16 07:29 INR 1.04 (0.92-1.08) 06/01/16 07:29 APTT 26.3 SECONDS (23.3-32.5) 06/01/16 07:29 - Head Exam Head Exam: ATRAUMATIC, NORMAL INSPECTION, NORMOCEPHALIC - Eye Exam Eye Exam: EOMI, Normal appearance, PERRL Pupil Exam: NORMAL ACCOMODATION - ENT Exam ENT Exam: Mucous Membranes Moist, Normal Exam - Neck Exam Neck Exam: Normal Inspection - Respiratory Exam Respiratory Exam: NORMAL BREATHING PATTERN - Cardiovascular Exam Cardiovascular Exam: REGULAR RHYTHM - GI/Abdominal Exam GI & Abdominal Exam: Normal Bowel Sounds - Rectal Exam Rectal Exam: NORMAL INSPECTION - Exam Exam: NORMAL INSPECTION External exam: NORMAL EXTERNAL EXAM - Extremities Exam Extremities Exam: Normal Capillary Refill - Back Exam Back Exam: NORMAL INSPECTION - Neurological Exam Neurological Exam: Alert, Awake Neuro motor strength exam: Left Upper Extremity: 3, Right Upper Extremity: 4, Left Lower Extremity: 3, Right Lower Extremity: 4 - Psychiatric Exam Psychiatric exam: Normal Affect, Normal Mood - Skin Skin Exam: Dry, Intact Assessment and Plan (1) Neuralgia Status: Acute (2) UTI (urinary tract infection) Status: Acute (3) Urinary retention Status: Acute (4) Multiple sclerosis exacerbation Assessment & Plan: plan for physical, occupational , rec therapy for team conference for tomorrow Status: Acute
[2016-06-14] MEDS: Insulin Lispro (humaLOG) 100 Units/ml Inj SC SCH ×2 (06:33→20:50)
[2016-06-14] MEDS: Enoxaparin 40 mg Syringe SC SCH (09:11)
[2016-06-14] MEDS: Multivitamin With Minerals Tab PO SCH (09:12)
[2016-06-14] MEDS: Pantoprazole 40 mg EC Tab PO SCH (09:13)
[2016-06-14] MEDS: carBAMazepine Chew Tab 100 MG Chew Tab PO SCH ×3 (09:16→16:54)
--- NOTE | 2016-06-14 12:09 | PSY.TMCNF ---
Nursing - Vital Signs Vital Signs (Last 8 hours): Vital Signs 06/14/16 07:30 Temperature 97.5 F L Pulse Rate 58 L Respiratory 20 Rate Blood Pressure 140/76 O2 Sat by Pulse 97 Oximetry Pain: 0 - Precautions: Precautions: Fall Prevention - Medications/Other Issues Comment: Pt at low nutritional risk. no goals. Follow-up due on 06/17/2016 - Consults Comment: - Toileting Toileting: Maximal Assistance - Bladder Management Bladder Pattern: Normal Voiding Method: Urinal - Bowel Management Bowel Pattern: Normal Bowel Management: Minimal Assistance Frequency of Accidents: none - Transfers Transfers: Maximal Assistance - ADL's ADL's: Moderate Assistance - Pain Management Comments: denies - Patient/Family Teaching Comments: safety transfer - Goals/Time Frame Comments: fall prevention Physical Therapy - Bed Mobility Bed Mobility: Verbal Cues, Contact Guard, Minimal Assistance - Transfers Wheelchair to Mat: Verbal Cues, Contact Guard, Minimal Assistance Sit to Stand: Verbal Cues, Moderate Assistance, Maximum Assistance Comment: lateral transfers with CG/min A - Ambulation Level of Assistance: Maximum Assistance Distance (ft.): 5 Orthoses: L DF wrap Comment: -parallel bars, step to pattern, WC follow. -LLE dorsiflexion wrap in place. -patient utilizes postures evidence of history of gait with posterior propping (on loft strand crutches). -able to take small step with L foot today but requires assistance to control inversion/eversion and landing; max A to prevent L knee buckling; mod A to prevent R knee buckling. -mod to max A for trunk control/upright stance. -requires step by step VCs to attempt to have patient improve pattern of gait. -pt remains at high fall risk due to LE weakness (L>R) and LUE weakness with poor postural control - Stair Negotiation Stairs: Level of Assistance: Not Tested - Standing Balance Static Stand: Moderate Assistance Dynamic Stand: Moderate Assistance, Maximal Assistance - Pain Pain (assessed during therapy session): 0 - Insight/Carryover Insight/Carryover: Fair - Patient/Family Education Comment: -educated on POC, therapy schedule, therapy goals, safety, mobility, transfers, postural control, purpose of therapies, MS education - Assessment/Plan Assessment: Pt is agreeable to participate in 1:1 and group recreation therapy sessions. Pt has participated in group sessions of nicole dominoes, and card tasks. Pt participates in 1:1 sessions of leisure tasks involving problem solving and direction following. Pt is independent with group tasks; however, requires verbal cues for 1:1 tasks for direction carryover and for problem solving. Pt's mood continues to be stable-flat although is arousable during sessions. Pt will continue to benefit from participating in recreation therapy sessions. - Goals Timeframe: 7 days - Provider Therapist: Spencer License Number: [id number] Occupational Therapy - Arousal/Attention/Orientation Patient Orientation: Person, Place, Time, Appropriate to Age, Appropriate to Situation - ADL/IADL Self Feeding: Supervision, Verbal Cues, Set-up Help Grooming: Verbal Cues, Set-up Help, Contact Guard Bathing-Upper Extremity: Maximum Assistance Bathing-Lower Extremity: Maximum Assistance, Dependent Dressing-Upper Extremity: Maximum Assistance Dressing-Lower Extremity: Dependent - Sitting Balance Static Sitting: Supervision Dynamic Sitting: Contact Guard Assist, Minimal Assistance - Transfers Wheelchair to Bed Transfers: Maximum Assistance Toilet Transfers: Maximum Assistance Comment: to trial bathing transfers in future sessions. Pt noted with severe LE strength limitaitons and + buckling LLE in standing. - Wheelchair Management Level of Assistance: Supervision Distance (ft.): 50 - Upper Extremity Status Right Upper Extremity Comment: AROM t/o RUE WFL. Left Upper Extremity Comment: Pt's L shldr at rest is noted with increased laxivity and at least 1 finger sublux however Pt is able to self-approximate when initiating shoulder movement. Pt is noted with slight limited AROM t/.o . PROM WFL - Pain Pain (assessed during therapy session): 0 - Insight/Carryover Insight/Carryover: Fair - Patient/Family Education Comment: -educated on POC, therapy schedule, therapy goals, safety, mobility, transfers, postural control, purpose of therapies, MS education - Assessment/Plan Assessment: Pt is agreeable to participate in 1:1 and group recreation therapy sessions. Pt has participated in group sessions of bingo, dominoes, and card tasks. Pt participates in 1:1 sessions of leisure tasks involving problem solving and direction following. Pt is independent with group tasks; however, requires verbal cues for 1:1 tasks for direction carryover and for problem solving. Pt's mood continues to be stable-flat although is arousable during sessions. Pt will continue to benefit from participating in recreation therapy sessions. - Goals Timeframe: 7 days - Provider Therapist: geno License Number: [id number] Speech Therapy - Consult Information Patient on Program: Yes Medical Diagnosis: MS exacerbation Treatment Diagnosis: mild cognitive deficits - Assessment Problem Solving Impairment: Mild Comment: impaired problem solving/reasoning for complex tasks Memory Impairment: Mild - Plan Assessment: Pt is agreeable to participate in 1:1 and group recreation therapy sessions. Pt has participated in group sessions of bingo, dominoes, and card tasks. Pt participates in 1:1 sessions of leisure tasks involving problem solving and direction following. Pt is independent with group tasks; however, requires verbal cues for 1:1 tasks for direction carryover and for problem solving. Pt's mood continues to be stable-flat although is arousable during sessions. Pt will continue to benefit from participating in recreation therapy sessions. - Provider Therapist: Martha Wagner License Number: [id number] Recreational Therapy - Participation Participation: Participates in Individual and/or Group Sessions - Attendance Attendance: 3-5 times per week - Activities Leisure Activities: Cards and Games - Socialization Level of Socialization: Initiates/interacts freely with care givers and peer - Diversional Time Diversional Time: television - Assessment Assessment/Plan: Pt is agreeable to participate in 1:1 and group recreation therapy sessions. Pt has participated in group sessions of bingo, dominoes, and card tasks. Pt participates in 1:1 sessions of leisure tasks involving problem solving and direction following. Pt is independent with group tasks; however, requires verbal cues for 1:1 tasks for direction carryover and for problem solving. Pt's mood continues to be stable-flat although is arousable during sessions. Pt will continue to benefit from participating in recreation therapy sessions. Problems Currently Limiting Participation: decrease leisure awareness level, decrease community leisure awareness level, anxiety, depression, L side weakness Goals and Time Frame: Pt will be encouraged to participate in 1:1 and group recreation therapy sessions 3-5x week to improve leisure awareness level, community leisure awareness level, improve arousal level, and L side weakness. - Provider Therapist: Ibeth Guzman, [employer] #[id number] Nutrition - Current Diet Current Diet/ Supplement/ Feedings: Moderate consistent CHO - Appetite Percent Meal Consumed: 75-100% - Comments Comments: safety transfer - Assessment/Goals/Time Frame Assessment/Goals/Time Frame: Pt at low nutritional risk. no goals. Follow-up due on 06/17/2016 - Provider Provider: Merced Willett RD Case Management - Psychosocial Assessment Support Systems: Patient's spouse rose- [phone] Psychological Interventions/Needs: Patient alert with mild memory and problem solving deficits Discharge Concerns: Patient continues to require min-mod A for bed mobility and transfers. Patient with 8 steps to negotiate at home Patient/Family Meeting: CM met with patient/family and rehab team Intervention/Goal/Outcome:: 1. Goal: Supervision level overall. 2. Plan: Home vs [facility] dependant on progress. 3. DME needs. 4. f/u appts. 5. Tentative discharge date: 06/16/2016. 6. continued stay review, LAD: 06/13. 7. continued emotional support - Discharge Plan Discharge Plan: Home with services, Subacute care - Provider Provider: LAKISHA Muñiz, [employer] License Number: [id number] Rehabilitation Plan - Treatment Plan Treatment Plan: Physical Therapy, Occupational Therapy, Speech, Dietary, Patient /Family Education - Recommendation Recommendation: Physical Therapy, Occupational Therapy, Speech, Dietary, Patient /Family Education - Discharge Plan Discharge to: Home
--- NOTE | 2016-06-14 14:40 | CP.PCM.PN ---
Subjective - Date & Time of Evaluation Date of Evaluation: 06/14/16 Time of Evaluation: 10:00 - Subjective Subjective: patient with generalized weakness, no specific complaints Objective - Vital Signs/Intake and Output Vital Signs (last 24 hours): Temp Pulse Resp BP Pulse Ox 97.5 F L 58 L 20 140/76 97 06/14/16 13:44 06/14/16 13:44 06/14/16 13:44 06/14/16 13:44 06/14/16 07:30 - Medications Medications: Current Medications Carbamazepine (Tegretol) 100 mg PO TID [facility] Last Admin: 06/14/16 13:11 Dose: 100 mg Docusate Sodium (Colace) 100 mg PO BID [facility] Last Admin: 06/14/16 09:12 Dose: 100 mg Enalapril Maleate (Vasotec) 5 mg PO DAILY [facility] Last Admin: 06/14/16 09:12 Dose: 5 mg Enoxaparin Sodium (Lovenox) 40 mg SC DAILY [facility] PRN Reason: Protocol Last Admin: 06/14/16 09:11 Dose: 40 mg Ergocalciferol (Drisdol 50,000 Intl Units Cap) 1 cap PO QWK [facility] Last Admin: 06/11/16 08:25 Dose: 1 cap Ferrous Sulfate (Feosol) 325 mg PO TID [facility] Last Admin: 06/14/16 13:11 Dose: 325 mg Finasteride (Proscar) 5 mg PO DAILY [facility] Last Admin: 06/14/16 09:12 Dose: 5 mg Hydrocortisone (Anusol-Hc) 25 mg [place] Q12 [facility] Last Admin: 06/14/16 09:14 Dose: 25 mg Insulin Human Lispro (Humalog) 0 units SC 0630,2130 [facility] PRN Reason: Protocol Last Admin: 06/14/16 06:33 Dose: Not Given Lactulose (Enulose) 20 gm PO BID PRN PRN Reason: Constipation Multivitamins/Minerals (Therapeutic-M Tab) 1 tab PO DAILY [facility] Last Admin: 06/14/16 09:12 Dose: 1 tab Pantoprazole Sodium (Protonix Ec Tab) 40 mg PO DAILY [facility] Last Admin: 06/14/16 09:13 Dose: 40 mg Tamsulosin HCl (Flomax) 0.4 mg PO DAILY [facility] Last Admin: 06/14/16 09:12 Dose: 0.4 mg - Labs Labs: 06/13/16 05:00 06/08/16 07:00 PT 10.8 SECONDS (9.6-11.2) 06/01/16 07:29 INR 1.04 (0.92-1.08) 06/01/16 07:29 APTT 26.3 SECONDS (23.3-32.5) 06/01/16 07:29 - Head Exam Head Exam: ATRAUMATIC, NORMAL INSPECTION, NORMOCEPHALIC - Eye Exam Eye Exam: EOMI, Normal appearance, PERRL Pupil Exam: NORMAL ACCOMODATION - ENT Exam ENT Exam: Mucous Membranes Moist, Normal Exam - Neck Exam Neck Exam: Normal Inspection - Respiratory Exam Respiratory Exam: NORMAL BREATHING PATTERN - Cardiovascular Exam Cardiovascular Exam: REGULAR RHYTHM - GI/Abdominal Exam GI & Abdominal Exam: Normal Bowel Sounds - Exam Exam: NORMAL INSPECTION External exam: NORMAL EXTERNAL EXAM - Extremities Exam Extremities Exam: Normal Capillary Refill, Normal Inspection - Back Exam Back Exam: NORMAL INSPECTION - Neurological Exam Neurological Exam: Alert, Awake Neuro motor strength exam: Left Upper Extremity: 3, Right Upper Extremity: 4, Left Lower Extremity: 3, Right Lower Extremity: 4 - Psychiatric Exam Psychiatric exam: Normal Affect, Normal Mood - Skin Skin Exam: Dry, Intact, Normal Color Assessment and Plan (1) Neuralgia Status: Acute (2) UTI (urinary tract infection) Status: Acute (3) Urinary retention Status: Acute (4) Multiple sclerosis exacerbation Assessment & Plan: plan for physical and occupational therapy. Patient needs the infusion treatment on sunday with tysabri to prevent further exacerbation Of multiple sclerosis. Apparently patient also was supposed to get the infusion in april but did not get the dose. Patient follows with neurologist Dr Christianson on a monthly basis. It will benefit patient to stay for additional rehab in the facility, subacute after acute Status: Acute
--- NOTE | 2016-06-14 19:03 | CP.PCM.PN ---
Subjective - Date & Time of Evaluation Date of Evaluation: 06/14/16 Time of Evaluation: 14:00 - Subjective Subjective: Pt seen and examined. Admitted gaining strength on the left. Objective - Vital Signs/Intake and Output Vital Signs (last 24 hours): Temp Pulse Resp BP Pulse Ox 97.9 F 71 18 108/72 98 06/14/16 15:32 06/14/16 15:32 06/14/16 15:32 06/14/16 15:32 06/14/16 15:32 - Medications Medications: Current Medications Carbamazepine (Tegretol) 100 mg PO TID [facility] Last Admin: 06/14/16 16:54 Dose: 100 mg Docusate Sodium (Colace) 100 mg PO BID [facility] Last Admin: 06/14/16 16:54 Dose: 100 mg Enalapril Maleate (Vasotec) 5 mg PO DAILY [facility] Last Admin: 06/14/16 09:12 Dose: 5 mg Enoxaparin Sodium (Lovenox) 40 mg SC DAILY [facility] PRN Reason: Protocol Last Admin: 06/14/16 09:11 Dose: 40 mg Ergocalciferol (Drisdol 50,000 Intl Units Cap) 1 cap PO QWK [facility] Last Admin: 06/11/16 08:25 Dose: 1 cap Ferrous Sulfate (Feosol) 325 mg PO TID [facility] Last Admin: 06/14/16 16:54 Dose: 325 mg Finasteride (Proscar) 5 mg PO DAILY [facility] Last Admin: 06/14/16 09:12 Dose: 5 mg Hydrocortisone (Anusol-Hc) 25 mg [place] Q12 [facility] Last Admin: 06/14/16 09:14 Dose: 25 mg Insulin Human Lispro (Humalog) 0 units SC 0630,2130 [facility] PRN Reason: Protocol Last Admin: 06/14/16 06:33 Dose: Not Given Lactulose (Enulose) 20 gm PO BID PRN PRN Reason: Constipation Multivitamins/Minerals (Therapeutic-M Tab) 1 tab PO DAILY [facility] Last Admin: 06/14/16 09:12 Dose: 1 tab Pantoprazole Sodium (Protonix Ec Tab) 40 mg PO DAILY [facility] Last Admin: 06/14/16 09:13 Dose: 40 mg Tamsulosin HCl (Flomax) 0.4 mg PO DAILY [facility] Last Admin: 06/14/16 09:12 Dose: 0.4 mg - Labs Labs: 06/13/16 05:00 06/08/16 07:00 PT 10.8 SECONDS (9.6-11.2) 06/01/16 07:29 INR 1.04 (0.92-1.08) 06/01/16 07:29 APTT 26.3 SECONDS (23.3-32.5) 06/01/16 07:29 - Constitutional Appears: No Acute Distress - Head Exam Head Exam: ATRAUMATIC - Eye Exam Eye Exam: absent: Scleral icterus - ENT Exam ENT Exam: Mucous Membranes Moist - Neck Exam Neck Exam: absent: Meningismus - Respiratory Exam Respiratory Exam: absent: Rhonchi, Wheezes, Respiratory Distress - Cardiovascular Exam Cardiovascular Exam: REGULAR RHYTHM, +S1, +S2 - GI/Abdominal Exam GI & Abdominal Exam: Soft. absent: Tenderness - Rectal Exam Rectal Exam: Deferred - Neurological Exam Neurological Exam: Alert, Oriented x3 - Psychiatric Exam Psychiatric exam: Normal Affect - Skin Skin Exam: Dry, Intact Assessment and Plan (1) Multiple sclerosis exacerbation Status: Acute (2) Urinary retention Status: Acute (3) UTI (urinary tract infection) Status: Acute (4) HTN (hypertension) Status: Chronic (5) DM2 (diabetes mellitus, type 2) Status: Chronic (6) LY (obstructive sleep apnea) Status: Chronic - Assessment and Plan (Free Text) Assessment: 70 yo male with history of DM II, HTN, Anemia and MS [place] [facility] [place] of a [place] and left sided weakness. He was diagnosed with MS exacerbation and managed with steroids. He was transferred to Acute Rehab for therapy due to his left sided weakness. Pt also developed urinary retention and UTI [place] [facility] [place] 1. MS Exacerbation improving with PT/OT 2. Urinary Retention resolved Continue Flomax and Avodart 3. UTI resolved 4. HTN BP stable continue Enalapril 5mg PO daily 5. DM II BS controlled with diet HgA1C: 6.9 6. LY CPAP at nights to sleep
[2016-06-15] MEDS: Insulin Lispro (humaLOG) 100 Units/ml Inj SC SCH ×2 (06:46→21:07)
[2016-06-15] MEDS: carBAMazepine Chew Tab 100 MG Chew Tab PO SCH ×3 (08:45→17:02)
[2016-06-15] MEDS: Multivitamin With Minerals Tab PO SCH (08:48)
[2016-06-15] MEDS: Enoxaparin 40 mg Syringe SC SCH (08:48)
[2016-06-15] MEDS: Pantoprazole 40 mg EC Tab PO SCH (08:49)
[2016-06-15 20:07] VITALS: TEMP 97.7
[2016-06-16] MEDS: Insulin Lispro (humaLOG) 100 Units/ml Inj SC SCH (06:24)
[2016-06-16] MEDS: carBAMazepine Chew Tab 100 MG Chew Tab PO SCH ×2 (08:31→12:12)
[2016-06-16] MEDS: Multivitamin With Minerals Tab PO SCH (08:31)
[2016-06-16] MEDS: Enoxaparin 40 mg Syringe SC SCH (08:31)
[2016-06-16] MEDS: Pantoprazole 40 mg EC Tab PO SCH (08:31)
[2016-06-16 08:33] VITALS: BP 134/64; PULSE 67; RESP 20; O2SAT 97
[2016-06-16 09:45] LABS: HEMATOCRIT 38.4 % (35.0-51.0); MEAN CELL VOLUME 81.5 fl (80.0-94.0); MEAN CORPUSCULAR HEMOGLOBIN 26.6 pg (27.0-31.0); MEAN CORPUSCULAR HGB CONC 32.6 g/dL (33.0-37.0); RED CELL DISTRIBUTION WIDTH 19.8 % (11.5-14.5); WHITE BLOOD COUNT 5.6 K/uL (4.8-10.8)
[2016-06-16] MEDS ORDERED: Enoxaparin 40 mg Syringe SC SCH (11:00)
--- NOTE | 2016-06-16 12:00 | CP.PCM.PN ---
Subjective - Date & Time of Evaluation Date of Evaluation: 06/16/16 Time of Evaluation: 11:50 - Subjective Subjective: Hospitalist Progress Note (Patient was seen and examined at 11:50 AM 06/16/16 621 -1) 70 year old male who was addmitted to Acute Rehab at [facility] on 05/31/16 [place] [facility] [place] admitted on 05/23/16 with complaints of left sided weakness s/p fall. He was diagnosed and treated (with IV Steroids) for MS Exacerbation as well as treated for Acute Cystitis (with Rocephin). Upon his admission to [facility] [place] he was noted to have limited movement in the left leg and left arm. MRI Brain 05/23/16: NO significant change to T2 hyperintensities which have a pattern suspicious for demyelination. Bladder U/S 05/25/16: possible cystitis Lumbar MRI 05/24/16: NO significant change, post operative and degenerative findings with stenosis, thickening of urinary bladder ROS: Last bowel movement was this morning Able to void urine on his own after Hobbs D/C'd 06/06/16 Weakness in the Left Arm and Left Leg is slowly improving. He states he is feeling somewhat stronger on the left side of his body NO other complaint upon FULL ROS Exam: HEENT: NCA, EOMI, PERRLA, NO cervical lymphadenopathy, NO thyromegaly, NO pharyngeal erythema/exudate, Oral mucosa and nasal turbinates are moist Cardiology: NS1 and NS2, NO M/R/G Respiratory: CTA B/L, NO R/R/W GI: BS x 4, Soft, NT, Central Obesity (can't adequately palpate liver and spleen ), NO guarding/rebound tenderness Extremities: NO edema, Pulses are strong and equal, Capillary Refill is 2 seconds Neurology: CN II throug XII are grossly intact, 5/5 strength with flexion and extension in the bilateral UE and Right LE, Left UE 4/5 strength with flexion and extension, Left LE 3/5 stregth with flexion/extension of hip and 1/5 strength with flexion/extension of the left lower leg, Left Lower Leg with movement with against gravity to about 40 degrees extension. Left Foot with 1/5 Dorsi/Plantar Flexion Assessment and Plan: 1). MS Exacerbation Finished Prednisone Taper on 06/04/16 PT/OT [employer] Specialist Dr. Llanos Carbamazepine 100 mg PO TID F/U with Pain Management Dr. Calderon as outpatient F/U with Neurologist Dr. Chatterjee as outpatient whom the patient states he see once a month 2). Urinary Retention/Hydronephrosis/Acute Cystitis Hobbs was discontinued 06/06/16 and since then patient has been voiding on his own without any difficulty Treated with Rocephin at [facility] [place] for the Cystitis F/U with Urologist Dr. Velasquez as outpatient Flomax 0.4 mg PO 1x/day Proscar 5 mg PO 1x/day 3). Hx DM2 RISS at 6:30 AM and 9:30 PM F/U HgBA1C Currently Controlled 4). LY CPAP at night Bandage at the bridge of the nose when wearing CPAP mask as mask caused an abrasion there 5). Anemia of Chronic Disease FeSO4 325 mg O TID HgB/Hct are currently stable 6). Hx HTN Enalapril 5 mg PO 1x/day Currently B/P is controlled 7). Prophylactic Measures Colace 100 mg PO 3x/day Enulose 20 gm PO 2x/day PRN Constipation Anusol HC [address] Q12H Hemerrhoids Lovenox 40 mg SQ 1x/day Protonix 40 mg PO 1x/day MVI PO 1x/day Ergocalciferol 50,000 Units PO once a week ROS NO complaints upon FULL ROS After my exam, I was notified by Nurse Daley around 4:40 PM that patient wanted to sign out AMA, form for which was completed. Patient understood the risks of doing so but still wanted to. The above will serve as discharge summary. Shiv Mckeon D.O. Objective - Vital Signs/Intake and Output Vital Signs (last 24 hours): Temp Pulse Resp BP Pulse Ox 97.7 F 67 20 134/64 97 06/16/16 08:32 06/16/16 08:32 06/16/16 08:32 06/16/16 08:32 06/16/16 08:32 - Medications Medications: Current Medications Carbamazepine (Tegretol) 100 mg PO TID [facility] Last Admin: 06/16/16 08:31 Dose: 100 mg Docusate Sodium (Colace) 100 mg PO BID [facility] Last Admin: 06/16/16 08:31 Dose: 100 mg Enalapril Maleate (Vasotec) 5 mg PO DAILY [facility] Last Admin: 06/16/16 08:32 Dose: 5 mg Enoxaparin Sodium (Lovenox) 40 mg SC DAILY [facility] PRN Reason: Protocol Ergocalciferol (Drisdol 50,000 Intl Units Cap) 1 cap PO QWK [facility] Last Admin: 06/11/16 08:25 Dose: 1 cap Ferrous Sulfate (Feosol) 325 mg PO TID [facility] Last Admin: 06/16/16 08:31 Dose: 325 mg Finasteride (Proscar) 5 mg PO DAILY [facility] Last Admin: 06/16/16 08:31 Dose: 5 mg Hydrocortisone (Anusol-Hc) [address] Q12 [facility] Last Admin: 06/16/16 08:31 Dose: Not Given Insulin Human Lispro (Humalog) 0 units SC 0630,2130 [facility] PRN Reason: Protocol Last Admin: 06/16/16 06:24 Dose: Not Given Lactulose (Enulose) 20 gm PO BID PRN PRN Reason: Constipation Multivitamins/Minerals (Therapeutic-M Tab) 1 tab PO DAILY [facility] Last Admin: 06/16/16 08:31 Dose: 1 tab Pantoprazole Sodium (Protonix Ec Tab) 40 mg PO DAILY [facility] Last Admin: 06/16/16 08:31 Dose: 40 mg Tamsulosin HCl (Flomax) 0.4 mg PO DAILY [facility] Last Admin: 06/16/16 08:31 Dose: 0.4 mg - Labs Labs: 06/16/16 09:20 06/08/16 07:00 PT 10.8 SECONDS (9.6-11.2) 06/01/16 07:29 INR 1.04 (0.92-1.08) 06/01/16 07:29 APTT 26.3 SECONDS (23.3-32.5) 06/01/16 07:29
[2016-06-16 13:03] LABS: BLOOD UREA NITROGEN 11 mg/dl (9-20); CALCIUM 9.8 mg/dL (8.4-10.2); CARBON DIOXIDE 25 mmol/L (22-30); CHLORIDE 104 mmol/L (98-107); GFR AFRICAN-AMERICAN > 60; GLUCOSE,RANDOM 107 mg/dL (75-110); POTASSIUM 3.9 MMOL/L (3.6-5.0); SODIUM 142 mmol/l (132-148)
--- NOTE | 2016-06-16 13:36 | CP.PCM.PN ---
Subjective - Date & Time of Evaluation Date of Evaluation: 06/16/16 Time of Evaluation: 10:00 - Subjective Subjective: patient with generalized weakness no acute complaint at present Objective - Vital Signs/Intake and Output Vital Signs (last 24 hours): Temp Pulse Resp BP Pulse Ox 97.7 F 67 20 134/64 97 06/16/16 08:32 06/16/16 08:32 06/16/16 08:32 06/16/16 08:32 06/16/16 08:32 - Medications Medications: Current Medications Carbamazepine (Tegretol) 100 mg PO TID [facility] Last Admin: 06/16/16 12:12 Dose: 100 mg Docusate Sodium (Colace) 100 mg PO BID [facility] Last Admin: 06/16/16 08:31 Dose: 100 mg Enalapril Maleate (Vasotec) 5 mg PO DAILY [facility] Last Admin: 06/16/16 08:32 Dose: 5 mg Enoxaparin Sodium (Lovenox) 40 mg SC DAILY [facility] PRN Reason: Protocol Ergocalciferol (Drisdol 50,000 Intl Units Cap) 1 cap PO QWK [facility] Last Admin: 06/11/16 08:25 Dose: 1 cap Ferrous Sulfate (Feosol) 325 mg PO TID [facility] Last Admin: 06/16/16 12:12 Dose: 325 mg Finasteride (Proscar) 5 mg PO DAILY [facility] Last Admin: 06/16/16 08:31 Dose: 5 mg Hydrocortisone (Anusol-Hc) 25 mg CA Q12 [facility] Last Admin: 06/16/16 08:31 Dose: Not Given Insulin Human Lispro (Humalog) 0 units SC 0630,2130 [facility] PRN Reason: Protocol Last Admin: 06/16/16 06:24 Dose: Not Given Lactulose (Enulose) 20 gm PO BID PRN PRN Reason: Constipation Multivitamins/Minerals (Therapeutic-M Tab) 1 tab PO DAILY [facility] Last Admin: 06/16/16 08:31 Dose: 1 tab Pantoprazole Sodium (Protonix Ec Tab) 40 mg PO DAILY [facility] Last Admin: 06/16/16 08:31 Dose: 40 mg Tamsulosin HCl (Flomax) 0.4 mg PO DAILY [facility] Last Admin: 06/16/16 08:31 Dose: 0.4 mg - Labs Labs: 06/16/16 09:20 06/16/16 12:44 PT 10.8 SECONDS (9.6-11.2) 06/01/16 07:29 INR 1.04 (0.92-1.08) 06/01/16 07:29 APTT 26.3 SECONDS (23.3-32.5) 06/01/16 07:29 - Head Exam Head Exam: ATRAUMATIC, NORMAL INSPECTION, NORMOCEPHALIC - Eye Exam Eye Exam: EOMI, Normal appearance, PERRL Pupil Exam: NORMAL ACCOMODATION - ENT Exam ENT Exam: Mucous Membranes Moist, Normal Exam - Respiratory Exam Respiratory Exam: NORMAL BREATHING PATTERN - Cardiovascular Exam Cardiovascular Exam: REGULAR RHYTHM - GI/Abdominal Exam GI & Abdominal Exam: Normal Bowel Sounds - Rectal Exam Rectal Exam: NORMAL INSPECTION - Exam External exam: NORMAL EXTERNAL EXAM - Extremities Exam Extremities Exam: Normal Capillary Refill - Back Exam Back Exam: NORMAL INSPECTION - Neurological Exam Neurological Exam: Alert, Awake Neuro motor strength exam: Left Upper Extremity: 3, Right Upper Extremity: 4, Left Lower Extremity: 3, Right Lower Extremity: 4 - Psychiatric Exam Psychiatric exam: Normal Affect, Normal Mood - Skin Skin Exam: Dry, Intact Assessment and Plan (1) Neuralgia Status: Acute (2) UTI (urinary tract infection) Status: Acute (3) Urinary retention Status: Acute (4) Multiple sclerosis exacerbation Assessment & Plan: recommend patient to go to subacute for additional rehab so patient can improve in strength and balance discussed with patient and family. Physical, occupational and rec therapy Status: Acute
--- NOTE | 2016-06-16 17:16 | CP.PCM.DIS ---
Provider - Provider Date of Admission: 05/31/16 21:36 Attending physician: Shiv Mckeon MD Primary care physician: Bradley Christianson MD Time Spent in preparation of Discharge (in minutes): 40 Hospital Course - Lab Results Lab Results: Most Recent Lab Values WBC 5.6 K/uL (4.8-10.8) 06/16/16 09:20 RBC 4.72 Mil/uL (4.40-5.90) 06/16/16 09:20 Hgb 12.5 g/dL (12.0-18.0) 06/16/16 09:20 Hct 38.4 % (35.0-51.0) 06/16/16 09:20 MCV 81.5 fl (80.0-94.0) 06/16/16 09:20 MCH 26.6 pg (27.0-31.0) L 06/16/16 09:20 MCHC 32.6 g/dL (33.0-37.0) L 06/16/16 09:20 RDW 19.8 % (11.5-14.5) H 06/16/16 09:20 Plt Count 131 K/uL (130-400) 06/16/16 09:20 MPV 7.7 fl (7.2-11.7) 06/01/16 07:29 Neut % (Auto) 50.4 % (50.0-75.0) 06/01/16 07:29 Lymph % (Auto) 39.6 % (20.0-40.0) 06/01/16 07:29 [place]ton % (Auto) 7.3 % (0.0-10.0) 06/01/16 07:29 Eos % (Auto) 2.5 % (0.0-4.0) 06/01/16 07:29 Baso % (Auto) 0.2 % (0.0-2.0) 06/01/16 07:29 Neut # 5.4 K/uL (1.8-7.0) 06/01/16 07:29 Lymph # 4.3 K/uL (1.0-4.3) 06/01/16 07:29 [place]ton # 0.8 K/uL (0.0-0.8) 06/01/16 07:29 Eos # 0.3 K/uL (0.0-0.7) 06/01/16 07:29 Baso # 0.0 K/uL (0.0-0.2) 06/01/16 07:29 Neutrophils % (Manual) 44 % (42-75) 06/01/16 07:29 Band Neutrophils % 1 % (0-2) 06/01/16 07:29 Lymphocytes % (Manual) 40 % (20-50) 06/01/16 07:29 Reactive Lymphs % 2 % (0-0) H 06/01/16 07:29 Monocytes % (Manual) 9 % (0-10) 06/01/16 07:29 Eosinophils % (Manual) 1 % (0-7) 06/01/16 07:29 Basophils % (Manual) 1 % (0-2) 06/01/16 07:29 Myelocytes % 2 % (0-0) H 06/01/16 07:29 Platelet Estimate Normal (NORMAL) 06/01/16 07:29 Large Platelets Present 06/01/16 07:29 Poikilocytosis (manual Slight 06/01/16 07:29 Anisocytosis (manual) Slight 06/01/16 07:29 Tear Drop Cells Slight 06/01/16 07:29 Ovalocytes Slight 06/01/16 07:29 PT 10.8 SECONDS (9.6-11.2) 06/01/16 07:29 INR 1.04 (0.92-1.08) 06/01/16 07:29 APTT 26.3 SECONDS (23.3-32.5) 06/01/16 07:29 Sodium 142 mmol/l (132-148) 06/16/16 12:44 Potassium 3.9 MMOL/L (3.6-5.0) 06/16/16 12:44 Chloride 104 mmol/L (98-107) 06/16/16 12:44 Carbon Dioxide 25 mmol/L (22-30) 06/16/16 12:44 Anion Gap 17 (10-20) 06/16/16 12:44 BUN 11 mg/dl (9-20) 06/16/16 12:44 Creatinine 0.6 mg/dL (0.8-1.5) L 06/16/16 12:44 Est GFR ( Amer) > 60 06/16/16 12:44 Est GFR (Non-Af Amer) > 60 06/16/16 12:44 POC Glucose (mg/dL) 106 mg/dL (65-110) 06/16/16 05:47 Random Glucose 107 mg/dL (75-110) 06/16/16 12:44 Hemoglobin A1c 6.9 % (4.2-6.5) H 06/01/16 07:29 Calcium 9.8 mg/dL (8.4-10.2) 06/16/16 12:44 - Hospital Course Hospital Course: 70 year old male who was addmitted to Acute Rehab at [facility] on 05/31/16 from [facility] where he was admitted on 05/23/16 with complaints of left sided weakness s/p fall. He was diagnosed and treated (with IV Steroids) for MS Exacerbation as well as treated for Acute Cystitis (with Rocephin). Upon his admission to [facility] he was noted to have limited movement in the left leg and left arm. Please see the individual Assessment and Plans below for details. MRI Brain 05/23/16: NO significant change to T2 hyperintensities which have a pattern suspicious for demyelination. Bladder U/S 05/25/16: possible cystitis Lumbar MRI 05/24/16: NO significant change, post operative and degenerative findings with stenosis, thickening of urinary bladder ROS: Last bowel movement was this morning Able to void urine on his own after Hobbs D/C'd 06/06/16 Weakness in the Left Arm and Left Leg is slowly improving. He states he is feeling somewhat stronger on the left side of his body NO other complaint upon FULL ROS Exam: HEENT: NCA, EOMI, PERRLA, NO cervical lymphadenopathy, NO thyromegaly, NO pharyngeal erythema/exudate, Oral mucosa and nasal turbinates are moist Cardiology: NS1 and NS2, NO M/R/G Respiratory: CTA B/L, NO R/R/W GI: BS x 4, Soft, NT, Central Obesity (can't adequately palpate liver and spleen ), NO guarding/rebound tenderness Extremities: NO edema, Pulses are strong and equal, Capillary Refill is 2 seconds Neurology: CN II throug XII are grossly intact, 5/5 strength with flexion and extension in the bilateral UE and Right LE, Left UE 4/5 strength with flexion and extension, Left LE 3/5 stregth with flexion/extension of hip and 1/5 strength with flexion/extension of the left lower leg, Left Lower Leg with movement with against gravity to about 40 degrees extension. Left Foot with 1/5 Dorsi/Plantar Flexion Assessment and Plan: 1). MS Exacerbation Finished Prednisone Taper on 06/04/16 PT/OT Analysis Tester Dr. Llanos Carbamazepine 100 mg PO TID F/U with Pain Management Dr. Calderon as outpatient F/U with Neurologist Dr. Chatterjee as outpatient whom the patient states he see once a month 2). Urinary Retention/Hydronephrosis/Acute Cystitis Hobbs was discontinued 06/06/16 and since then patient has been voiding on his own without any difficulty Treated with Rocephin at [facility] for the Cystitis F/U with Urologist Dr. Velasquez as outpatient Flomax 0.4 mg PO 1x/day Proscar 5 mg PO 1x/day 3). Hx DM2 RISS at 6:30 AM and 9:30 PM F/U HgBA1C Currently Controlled 4). LY CPAP at night Bandage at the bridge of the nose when wearing CPAP mask as mask caused an abrasion there 5). Anemia of Chronic Disease FeSO4 325 mg O TID HgB/Hct are currently stable 6). Hx HTN Enalapril 5 mg PO 1x/day Currently B/P is controlled 7). Prophylactic Measures Colace 100 mg PO 3x/day Enulose 20 gm PO 2x/day PRN Constipation Anusol HC 25 mg FL Q12H Hemerrhoids Lovenox 40 mg SQ 1x/day Protonix 40 mg PO 1x/day MVI PO 1x/day Ergocalciferol 50,000 Units PO once a week ROS NO complaints upon FULL ROS After my exam, I was notified by Nurse Daley around 4:40 PM that patient wanted to sign out AMA, form for which was completed. Patient understood the risks of doing so but still wanted to. The above will serve as discharge summary. Shiv Mckeon D.O. Discharge Exam - Head Exam Head Exam: ATRAUMATIC, NORMAL INSPECTION, NORMOCEPHALIC Discharge Plan - Follow Up Plan Condition: GOOD Disposition: HOME/ ROUTINE Instructions: Multiple Sclerosis (DC), Fall Prevention (DC) Referrals: Bradley Christianson MD [Primary Care Provider] -
--- NOTE | 2016-07-04 13:21 | DS ---
The patient was admitted for acute inpatient rehab program on 05/31 and discharged on 06/16 to home. T he patient did well during the rehab stay. The patient discharged against medical advice. Spoke to the family and patient. The patient was recommended for continued inpatient rehab for subacute thera py because patient needed hands-on assistance for functional mobility and progress. The patient refu sed and was discharged home. The patient and family member informed no services including skilled [facility], DME and family had no services. The patient encouraged to see attending and to follow up wi Dr. Gina Varela for further home care orders and for further treatment. For physical thera py, patient also did well during the physical therapy program. The patient's right knee range of mot ion within normal limits, left side impaired, AROM impaired in all joints, passive range of motion wi thin normal limits at the hip and knee, right knee flexion 3, right foot 4, rolling to the right/left supervision, supine to sit supervision and contact guard, scooting supervision and contact guard, st and/pivot contact guard, transfers min assist, 10 feet ambulation with crutches with min to mod roberta t, parallel bars with mod assist, [place] crutches with moderate assistance 10-15 feet. For occupa tional therapy, patient's right upper extremity 3-5 throughout, left upper 2/5. ADLs: Self-feeding supervision, grooming supervision/verbal cues, upper body dressing max assist, upper body bathing max assist, lower body dressing dependent, lower body bathing dependent, balance supervision, dynamic co ntact guard assist to min assist. For recreational therapy, patient did well during the recreational therapy. Encouraged to participate in 1:1 and group therapy sessions 3-5 times a week to improve th e leisure awareness level. Jf Garza MD cc: [id number] TT: 07/04/2016 13:20:19 en
== END 2016-06-16 16:42 | disposition left against medical advice (07) | DRG 59 ==
PROVIDERS: ADMIT Family Medicine; ATTEND Family Medicine
PROC: F07L6ZZ Therapeutic Exercise Treatment of Musculoskeletal System - Lower Back / Lower Extremity (ICD-10-PCS; principal; 2016-06-01)
PROC: F07Z9FZ Gait Training/Functional Ambulation Treatment using Assistive, Adaptive, Supportive or Protective Equipment (ICD-10-PCS; 2016-06-01)
PROC: F08Z4FZ Home Management Treatment using Assistive, Adaptive, Supportive or Protective Equipment (ICD-10-PCS; 2016-06-01)
DX: G35 Multiple sclerosis (principal); N30.00 Acute cystitis without hematuria; C90.00 Multiple myeloma not having achieved remission; N13.30 Unspecified hydronephrosis; E11.9 Type 2 diabetes mellitus without complications; D63.8 Anemia in other chronic diseases classified elsewhere; I10 Essential (primary) hypertension; E66.9 Obesity, unspecified; G47.33 Obstructive sleep apnea (adult) (pediatric); Z87.440 Personal history of urinary (tract) infections; Z98.84 Bariatric surgery status; R33.9 Retention of urine, unspecified; N40.0 Benign prostatic hyperplasia without lower urinary tract symptoms